=== PATIENT | female | born 1950 | race Caucasian/White ===

== ENCOUNTER 2016-10-13 15:48 | Emergency (ER) | payer MEDICARE, OTHER ==
[2016-10-13] MEDS ORDERED: ACETAMINOPHEN 325 MG TABLET PO STA (16:51)
[2016-10-13] MEDS ORDERED: ACETAMINOPHEN 325 MG TABLET PO ONE (17:04)
== END 2016-10-13 17:20 | disposition home or self-care (01) ==
DX: G43.909 Migraine, unspecified, not intractable, without status migrainosus (principal); R42 Dizziness and giddiness; I10 Essential (primary) hypertension; I73.9 Peripheral vascular disease, unspecified; Z86.711 Personal history of pulmonary embolism; Z79.01 Long term (current) use of anticoagulants
CPT/HCPCS: 99283; A9270

== ENCOUNTER 2017-02-09 13:51 | Outpatient (CLI) | payer MEDICARE, OTHER ==
[2017-02-09 19:14] LABS: BASOPHILS % (AUTO) 0.5 %; EOSINOPHILS # (AUTO) 0.2 10^3/uL (0.0-0.7); EOSINOPHILS % (AUTO) 3.5 %; HGB - HEMOGLOBIN 11.9 g/dL (12.0-16.0); LYMPHOCYTES # (AUTO) 1.1 10^3/uL (1.5-3.5); LYMPHOCYTES % (AUTO) 21.3 %; MEAN CORPUSCULAR HEMOGLOBIN 32.2 pg (27.0-31.0); MEAN CORPUSCULAR HGB CONC 33.2 g/dL (32.0-36.0); MEAN CORPUSCULAR VOLUME 96.9 fL (81.0-99.0); MEAN PLATELET VOLUME 7.7 fL (7.9-10.8); MONOCYTES # (AUTO) 0.5 10^3/uL (0.0-1.0); MONOCYTES % (AUTO) 9.8 %; NEUTROPHILS # (AUTO) 3.3 10^3/uL (1.5-6.6); NEUTROPHILS % (AUTO) 64.9 %; NUCLEATED RED BLOOD CELLS AUTO 0.1 /100WBC; RED BLOOD COUNT 3.71 10^6/uL (4.20-5.40); UNCORRECTED WHITE BLOOD COUNT 5.1 x10^3/uL; WHITE BLOOD COUNT 5.1 x10^3/uL (4.8-10.8)
[2017-02-09 19:31] LABS: ALBUMIN/GLOBULIN RATIO 1.4 (1.0-2.2); BILIRUBIN,TOTAL 0.4 mg/dL (0.2-1.0); CALCIUM 9.5 mg/dL (8.5-10.3); POTASSIUM 4.1 mmol/L (3.5-5.0); TOTAL PROTEIN 6.8 g/dL (6.7-8.2)
== END 2017-02-09 13:52 | disposition home or self-care (01) ==
LOC: LAB.WCP 13:51
PROVIDERS: ATTEND Family Medicine
DX: I95.9 Hypotension, unspecified (principal)
CPT/HCPCS: 36415; 80053; 85025

== ENCOUNTER 2017-04-25 11:08 | Outpatient (CLI) | payer MEDICARE, OTHER ==
--- NOTE | 2017-04-25 12:45 | XRAY Report ---
RIGHT HIP AND PELVIS: 04/25/2017 CLINICAL INDICATION: Pain. FINDINGS: Frontal view of the hips and pelvis and frogleg lateral view of the right hip demonstrate mild osteoarthritis. There is no evidence of acute fracture or dislocation. IMPRESSION: MILD RIGHT HIP OSTEOARTHRITIS. JOB #: [id number] EXT JOB #:[id number]
--- NOTE | 2017-04-25 12:45 | XRAY Report ---
TWO-VIEW STANDING RIGHT KNEE: 04/25/2017 CLINICAL INDICATION: Arthritis. COMPARISON: 11/17/2014 FINDINGS: Standing frontal and lateral views of the right knee demonstrate progression of osteoarthr itis, now severe. There is no evidence of fracture. No effusion is present. IMPRESSION: SEVERE RIGHT KNEE OSTEOARTHRITIS. JOB #: [id number] EXT JOB #:[id number]
== END 2017-04-25 11:09 | disposition home or self-care (01) ==
LOC: DI 11:08
PROVIDERS: ATTEND Family Medicine
DX: M16.11 Unilateral primary osteoarthritis, right hip (principal); M17.11 Unilateral primary osteoarthritis, right knee

== ENCOUNTER 2017-10-17 19:38 | Emergency (ER) | payer MEDICARE, OTHER ==
--- NOTE | 2017-10-17 19:57 | ED Physician Documentation ---
PD HPI HEAD INJURY - Stated complaint Stated Complaint: GLF - HEAD PX - Chief complaint Chief Complaint: Neuro - History obtained from History obtained from: Patient - History of Present Illness Mechanism of head injury: Other (67-year-old woman with remote history of PE and maintained on warfarin, last INR 2.2 couple of weeks ago and she has been pretty stable. She tripped over someone's foot today and injured her ankle but hit the back of her head on a piece of furniture and has a mild headache without loss of consciousness or nausea.) Review of Systems Constitutional: denies: Fever, Chills Eyes: denies: Loss of vision, Decreased vision Ears: denies: Loss of hearing, Ear pain Nose: denies: Rhinorrhea / runny nose, Congestion Cardiac: denies: Chest pain / pressure, Palpitations PD PAST MEDICAL HISTORY - Past Medical History Cardiovascular: Hypertension, Peripheral Vascular Disease, Pulmonary embolism Respiratory: None Neuro: Headache/migraine, Seizure disorder, Other Endocrine/Autoimmune: None GI: None : Frequency HEENT: None Psych: Claustrophobia, Other Musculoskeletal: Chronic back pain Derm: Rosacea - Past Surgical History Past Surgical History: Yes Ortho: Other - Present Medications Home Medications: Ambulatory Orders Medication Instructions Recorded Confirmed Biotin 1,000 mcg PO DAILY 08/25/14 10/13/16 Doxycycline Hyclate 50 mg PO BID 08/25/14 10/13/16 Simvastatin 20 mg PO DAILY 08/25/14 10/13/16 lamoTRIgine [Lamictal Xr] 200 mg PO BID 08/25/14 10/13/16 Warfarin [Coumadin] 5 mg PO DAILY 01/11/15 10/13/16 Oxybutynin [Ditropan] 5 mg PO BID 08/18/15 10/13/16 Metronidazole 0 mg TOP DAILY 01/25/16 10/13/16 Topiramate [Topamax] 100 mg PO BID 10/13/16 10/13/16 Doxycycline Monohydrate 50 mg PO BID 10/17/17 10/17/17 Furosemide [Lasix] 20 mg PO DAILY 10/17/17 10/17/17 Potassium Chloride 10 meq PO DAILY 10/17/17 10/17/17 diazePAM [Valium] 5 mg PO DAILY 10/17/17 10/17/17 - Allergies Allergies/Adverse Reactions: Allergies Allergy/AdvReac Type Severity Reaction Status Date / Time No Known Drug Allergies Allergy Verified 10/17/17 19:46 - Social History Does the pt smoke?: No Smoking Status: Never smoker Does the pt drink ETOH?: No Does the pt have substance abuse?: No - Immunizations Immunizations are current?: Yes PD ED PE NORMAL - Vitals Vital signs reviewed: Yes - General General: Alert and oriented X 3, No acute distress - HEENT HEENT: PERRL, EOMI, Other (Tenderness of the posterior scalp without deformity) - Neck Neck: Supple, no meningeal sign, No bony TTP - Extremities Extremities: Other (Tender to the lateral malleolus but more so the ATFL of the right ankle without deformity. Relatively normal gait with only mild limp.) - 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, Normal speech Eye Opening: Spontaneous Motor: Obeys Commands Verbal: Oriented GCS Score: 15 - Psych Psych: Normal mood, Normal affect Results - Vitals Vitals: Vital Signs - 24 hr 10/17/17 10/17/17 19:42 20:01 Temperature 36.9 C Heart Rate 74 64 Respiratory 16 18 Rate Blood Pressure 157/84 H 138/76 H O2 Saturation 100 99 Oxygen O2 Source [With Activity] Room air O2 Source [Without Activity] Room air O2 Source Room air - Labs Labs: Laboratory Tests 10/17/17 20:01 Whole Blood INR 2.8 H - Rads (name of study) XR R ankle Radiology: EMP read contemporaneously (STS and effusion, no frx) CT head Radiology: EMP read contemporaneously (atrophy, NAD) Departure - Departure Disposition: 01 Home, Self Care Clinical Impression: Anticoagulation adequate Head injury Qualifiers: Encounter type: initial encounter Qualified Code(s): S09.90XA - Unspecified injury of head, initial encounter Condition: Good Record reviewed to determine appropriate education?: Yes Instructions: ED Head Injury Closed Comments: Return for new or worsening symptoms, especially increased headaches. Your blood pressure was elevated today on check into the emergency department. This does not mean that you have hypertension, it is a common phenomenon to come to the emergency department and have elevated blood pressure. I recommend that you see your primary care physician within the week to have it rechecked when you are feeling better.
--- NOTE | 2017-10-17 20:30 | CT Report ---
EXAM: CT HEAD EXAM DATE: 10/17/2017 08:21 PM. CLINICAL HISTORY: Head injury, on warfarin. COMPARISON: 08/17/2015. TECHNIQUE: Multiaxial CT images were obtained from the foramen magnum to the vertex. Reformats: Coron al. IV contrast: None. In accordance with CT protocol optimization, one or more of the following dose reduction techniques w ere utilized for this exam: automated exposure control, adjustment of mA and/or KV based on patient s ize, or use of iterative reconstructive technique. FINDINGS: Parenchyma: No intraparenchymal hemorrhage. No evidence of mass, midline shift, or CT findings of acu te infarction. Laughlin-white differentiation is distinct. Diffuse chronic microangiopathic white matter changes. Extraaxial Spaces: Normal for age. No subdural or epidural collections. Ventricles: The ventricles and cortical sulci are enlarged, consistent with age-related tissue loss. Sinuses and orbits: Imaged paranasal sinuses, orbits, and mastoids show no significant abnormality. Bones: Unremarkable. Other: None. IMPRESSION: Generalized age-related cortical atrophic changes without evidence of acute intracranial abnormality. [facility] Referring Provider Line: [phone] SITE ID: [id number]
--- NOTE | 2017-10-17 20:36 | XRAY Report ---
EXAM: RIGHT ANKLE RADIOGRAPHY EXAM DATE: 10/17/2017 08:24 PM. CLINICAL HISTORY: Trauma, pain. COMPARISON: None. TECHNIQUE: 3 views. FINDINGS: Bones: Osteopenia. Large plantar calcaneal spur. No definite fracture or other bone lesion. Joints: Symmetrical mortise. Large joint effusion. Soft Tissues: Soft tissue swelling over malleoli. IMPRESSION: Soft tissue swelling with large effusion. [facility] Referring Provider Line: [phone] SITE ID: [id number]
[2017-10-17 20:50] VITALS: BP 142/81
== END 2017-10-17 20:59 | disposition home or self-care (01) ==
LOC: ED 19:38
DX: S09.90XA Unspecified injury of head, initial encounter (principal); M25.471 Effusion, right ankle; I73.9 Peripheral vascular disease, unspecified; I10 Essential (primary) hypertension; Z79.01 Long term (current) use of anticoagulants; Z86.711 Personal history of pulmonary embolism; W01.190A Fall on same level from slipping, tripping and stumbling with subsequent striking against furniture, initial encounter
CPT/HCPCS: 70450; 85610; 99283

== ENCOUNTER 2018-02-06 14:37 | Outpatient (CLI) | payer MEDICARE, OTHER | END 2018-02-06 14:38 | LOC: LAB.WCP 14:37 | PROVIDERS: ATTEND Family Medicine | DX: R19.09 Other intra-abdominal and pelvic swelling, mass and lump (principal) | CPT/HCPCS: 36415; 86304 ==

== ENCOUNTER 2018-05-06 11:53 | Outpatient (CLI) | payer MEDICARE, OTHER ==
[2018-05-06 19:40] LABS: THYROID STIMULATING HORMONE 1.68 uIU/mL (0.34-5.60)
[2018-05-06 19:45] LABS: FERRITIN 83.4 ng/mL (11.0-306.8)
[2018-05-08 13:46] LABS: ANA SCREEN NEGATIVE (NEGATIVE)
== END 2018-05-06 11:54 | disposition home or self-care (01) ==
LOC: LAB.WCP 11:53
PROVIDERS: ATTEND Family Medicine
DX: I10 Essential (primary) hypertension (principal); L65.9 Nonscarring hair loss, unspecified; E78.5 Hyperlipidemia, unspecified; Z79.899 Other long term (current) drug therapy
CPT/HCPCS: 36415; 80053; 80061; 80175; 81599; 82627; 82728; 83036; 83721; 84402; 84403; 84443; 85025; 86038; 86592

== ENCOUNTER 2018-05-07 10:50 | Outpatient (CLI) | payer MEDICARE, OTHER ==
[2018-05-07 12:59] LABS: BASOPHILS % (AUTO) 0.8 %; EOSINOPHILS # (AUTO) 0.1 10^3/uL (0.0-0.7); EOSINOPHILS % (AUTO) 3.7 %; HGB - HEMOGLOBIN 13.3 g/dL (12.0-16.0); LYMPHOCYTES # (AUTO) 0.9 10^3/uL (1.5-3.5); LYMPHOCYTES % (AUTO) 28.8 %; MEAN CORPUSCULAR HEMOGLOBIN 32.8 pg (27.0-31.0); MEAN CORPUSCULAR HGB CONC 34.5 g/dL (32.0-36.0); MEAN PLATELET VOLUME 7.5 fL (7.9-10.8); MONOCYTES # (AUTO) 0.3 10^3/uL (0.0-1.0); MONOCYTES % (AUTO) 9.6 %; NEUTROPHILS # (AUTO) 1.9 10^3/uL (1.5-6.6); NEUTROPHILS % (AUTO) 57.1 %; PLT - PLATELET COUNT 303 10^3/uL (130-450); RED BLOOD COUNT 4.05 10^6/uL (4.20-5.40); RED CELL DISTRIBUTION WIDTH 13.6 % (12.0-15.0); WHITE BLOOD COUNT 3.2 x10^3/uL (4.8-10.8)
[2018-05-07 13:01] LABS: ALBUMIN 3.9 g/dL (3.2-5.5); ALBUMIN/GLOBULIN RATIO 1.3 (1.0-2.2); ALKALINE PHOSPHATASE 77 IU/L (42-121); ALT ALANINE AMINOTRANSFERASE 16 IU/L (10-60); AST ASPARTATE AMINOTRANSFERASE 22 IU/L (10-42); BILIRUBIN,TOTAL 0.8 mg/dL (0.2-1.0); BUN - BLOOD UREA NITROGEN 25 mg/dL (6-20); CALCIUM 9.6 mg/dL (8.5-10.3); CARBON DIOXIDE - CO2 22 mmol/L (21-32); CHLORIDE 101 mmol/L (101-111); CHOL/HDL RATIO 2.7 (<4.4); CHOLESTEROL 214 mg/dL; CREATININE 0.9 mg/dL (0.4-1.0); GFR - MDRD 62 (>89); GLUCOSE 88 mg/dL (70-100); HDL CHOLESTEROL 78 mg/dL; LDL CHOLESTEROL,CALCULATED 124 mg/dL; LDL/HDL RATIO 1.6 (<4.4); SODIUM 132 mmol/L (135-145); TOTAL PROTEIN 6.8 g/dL (6.7-8.2); VLDL CHOLESTEROL 12 mg/dL
[2018-05-07 13:31] LABS: HB2 TOTAL 13.3 g/dL; HEMOGLOBIN A1C 0.43 g/dL; HEMOGLOBIN A1C % 5.1 % (4.6-6.2)
== END 2018-05-07 10:51 | disposition home or self-care (01) ==
LOC: LAB.WCP 10:50
PROVIDERS: ATTEND Family Medicine
DX: I10 Essential (primary) hypertension (principal); R73.01 Impaired fasting glucose; E78.5 Hyperlipidemia, unspecified; L65.9 Nonscarring hair loss, unspecified; Z79.899 Other long term (current) drug therapy
CPT/HCPCS: 36415; 80053; 80061; 83036; 83721; 85025

== ENCOUNTER 2018-09-12 08:00 | Outpatient (CLI) | payer MEDICARE, OTHER | END 2018-09-12 23:59 | disposition home or self-care (01) | LOC: LAB.WCP 08:00 | PROVIDERS: ATTEND Family Medicine | DX: Z86.718 Personal history of other venous thrombosis and embolism (principal); Z79.01 Long term (current) use of anticoagulants ==

== ENCOUNTER 2018-10-10 08:00 | Outpatient (CLI) | payer MEDICARE, OTHER | END 2018-10-10 23:59 | disposition home or self-care (01) | LOC: LAB.WCP 08:00 | PROVIDERS: ATTEND Physician Assistant Medical | DX: Z86.718 Personal history of other venous thrombosis and embolism (principal); Z79.01 Long term (current) use of anticoagulants | CPT/HCPCS: 81025 ==

== ENCOUNTER 2019-03-06 08:00 | Outpatient (CLI) | payer MEDICARE, OTHER | END 2019-03-06 23:59 | disposition home or self-care (01) | LOC: LAB.WCP 08:00 | PROVIDERS: ATTEND Family Medicine | DX: I82.90 Acute embolism and thrombosis of unspecified vein (principal); Z79.01 Long term (current) use of anticoagulants ==

== ENCOUNTER 2019-05-12 08:00 | Outpatient (CLI) | payer MEDICARE, OTHER | END 2019-05-12 23:59 | disposition home or self-care (01) | LOC: LAB.WCP 08:00 | PROVIDERS: ATTEND Physician Assistant Medical | DX: Z79.01 Long term (current) use of anticoagulants (principal); I82.409 Acute embolism and thrombosis of unspecified deep veins of unspecified lower extremity ==

== ENCOUNTER 2019-05-16 14:38 | Outpatient (CLI) | payer MEDICARE, OTHER ==
[2019-05-16 19:19] LABS: BASOPHILS % (AUTO) 1.1 %; EOSINOPHILS # (AUTO) 0.2 10^3/uL (0.0-0.7); EOSINOPHILS % (AUTO) 5.4 %; HGB - HEMOGLOBIN 12.4 g/dL (12.0-16.0); LYMPHOCYTES # (AUTO) 0.7 10^3/uL (1.5-3.5); LYMPHOCYTES % (AUTO) 19.4 %; MEAN CORPUSCULAR HEMOGLOBIN 31.3 pg (27.0-31.0); MEAN CORPUSCULAR HGB CONC 31.2 g/dL (32.0-36.0); MEAN CORPUSCULAR VOLUME 100.5 fL (81.0-99.0); MONOCYTES # (AUTO) 0.4 10^3/uL (0.0-1.0); MONOCYTES % (AUTO) 11.3 %; NEUTROPHILS # (AUTO) 2.3 10^3/uL (1.5-6.6); NEUTROPHILS % (AUTO) 62.3 %; PLT - PLATELET COUNT 288 10^3/uL (130-450); RED BLOOD COUNT 3.96 10^6/uL (4.20-5.40); RED CELL DISTRIBUTION WIDTH 14.1 % (12.0-15.0); WHITE BLOOD COUNT 3.7 x10^3/uL (4.8-10.8)
[2019-05-16 19:44] LABS: ALBUMIN/GLOBULIN RATIO 1.3 (1.0-2.2); ALKALINE PHOSPHATASE 73 IU/L (42-121); ALT ALANINE AMINOTRANSFERASE 21 IU/L (10-60); AST ASPARTATE AMINOTRANSFERASE 22 IU/L (10-42); BILIRUBIN,TOTAL 0.6 mg/dL (0.2-1.0); BUN - BLOOD UREA NITROGEN 29 mg/dL (6-20); CALCIUM 9.6 mg/dL (8.5-10.3); CARBON DIOXIDE - CO2 25 mmol/L (21-32); CHLORIDE 106 mmol/L (101-111); CHOL/HDL RATIO 2.4 (<4.4); CHOLESTEROL 184 mg/dL; GFR - MDRD 55 (>89); GLUCOSE 93 mg/dL (70-100); HDL CHOLESTEROL 77 mg/dL; LDL CHOLESTEROL,CALCULATED 95 mg/dL; LDL/HDL RATIO 1.2 (<4.4); SODIUM 138 mmol/L (135-145); VLDL CHOLESTEROL 12 mg/dL
[2019-05-16 19:53] LABS: FERRITIN 41.9 ng/mL (11.0-306.8)
[2019-05-16 19:58] LABS: HB2 TOTAL 12.9 g/dL; HEMOGLOBIN A1C 0.48 g/dL; HEMOGLOBIN A1C % 5.6 % (4.6-6.2)
[2019-05-17 12:12] LABS: HEPATITIS C ANTIBODY NON-REACTIVE (NON-REACTIVE)
== END 2019-05-16 23:59 | disposition home or self-care (01) ==
LOC: LAB.WCP 14:38
PROVIDERS: ATTEND Family Medicine
DX: Z11.59 Encounter for screening for other viral diseases (principal); L65.9 Nonscarring hair loss, unspecified; R73.01 Impaired fasting glucose; E04.1 Nontoxic single thyroid nodule; I10 Essential (primary) hypertension; E78.5 Hyperlipidemia, unspecified; G40.909 Epilepsy, unspecified, not intractable, without status epilepticus
CPT/HCPCS: 36415; 80053; 80061; 80175; 82728; 83036; 83721; 84443; 85025; 86803

== ENCOUNTER 2019-06-12 08:00 | Outpatient (CLI) | payer MEDICARE, OTHER | END 2019-06-12 23:59 | disposition home or self-care (01) | LOC: LAB.WCP 08:00 | PROVIDERS: ATTEND Family Medicine | DX: Z79.01 Long term (current) use of anticoagulants (principal); I82.90 Acute embolism and thrombosis of unspecified vein ==

== ENCOUNTER 2019-06-20 23:39 | Emergency (ER) | payer MEDICARE, OTHER ==
--- NOTE | 2019-06-20 23:54 | ED Physician Documentation ---
PD HPI BACK PAIN - Stated complaint Stated Complaint: BK PX - Chief complaint Chief Complaint: Back Pain - History obtained from History obtained from: Patient - History of Present Illness Timing - onset: Yesterday Timing - details: Abrupt onset, Intermittant, Waxing and waning Pain level max: 8 Pain level now: 0 (no pain at rest but pain recurs with movement) Location: Lower, Left Quality: Pain, Spasm Associated symptoms: No: Fever, Weakness, Numbness Improves with: Rest Worsened by: Movement Similar symptoms before: Other (some similarity to when she was diagnosed with P E) Recently seen: Not recently seen - Additional information Additional information: woke yesterday morning with left flank pain that improved during the day but recurred this AM and more severe. It is distinctly worse with movement although no pleuritic component. took tylenol without relief. She feels that there is some similarity to when she was diagnosed with PE, although she was short of breath and had pleuritic pain that time (she has neither of these today). Review of Systems Constitutional: denies: Fever Cardiac: reports: Reviewed and negative Respiratory: reports: Reviewed and negative GI: reports: Reviewed and negative : denies: Dysuria, Frequency, Hematuria Musculoskeletal: reports: Back pain. denies: Extremity swelling PD PAST MEDICAL HISTORY - Past Medical History Cardiovascular: Hypertension, Peripheral Vascular Disease, Pulmonary embolism Respiratory: None Endocrine/Autoimmune: None GI: None : Frequency HEENT: None Psych: Claustrophobia, Other Musculoskeletal: Chronic back pain Derm: Rosacea - Past Surgical History Past Surgical History: Yes Ortho: Other - Present Medications Home Medications: Ambulatory Orders Medication Instructions Recorded Confirmed Biotin 1,000 mcg PO DAILY 08/25/14 10/13/16 Doxycycline Hyclate 50 mg PO BID 08/25/14 10/13/16 Simvastatin 20 mg PO DAILY 08/25/14 10/13/16 lamoTRIgine [Lamictal Xr] 200 mg PO BID 08/25/14 10/13/16 Warfarin [Coumadin] 5 mg PO DAILY 01/11/15 10/13/16 Oxybutynin [Ditropan] 5 mg PO BID 08/18/15 10/13/16 Metronidazole 0 mg TOP DAILY 01/25/16 10/13/16 Topiramate [Topamax] 100 mg PO BID 10/13/16 10/13/16 Doxycycline Monohydrate 50 mg PO BID 10/17/17 10/17/17 Furosemide [Lasix] 20 mg PO DAILY 10/17/17 10/17/17 Potassium Chloride 10 meq PO DAILY 10/17/17 10/17/17 diazePAM [Valium] 5 mg PO DAILY 10/17/17 10/17/17 Cyclobenzaprine [Flexeril] 10 mg PO TID PRN #20 tablet 06/21/19 Oxycodone HCl/Acetaminophen 1 - 2 each PO Q6H PRN #14 tablet 06/21/19 [Percocet 5-325 mg Tablet] - Allergies Allergies/Adverse Reactions: Allergies Allergy/AdvReac Type Severity Reaction Status Date / Time No Known Drug Allergies Allergy Verified 06/20/19 23:46 - Social History Does the pt smoke?: No Smoking Status: Never smoker Does the pt drink ETOH?: No Does the pt have substance abuse?: No - Immunizations Immunizations are current?: Yes - POLST Patient has POLST: No PD ED PE NORMAL - Vitals Vital signs reviewed: Yes - General General: Alert and oriented X 3, No acute distress (NAD at rest but painful distress with movement involving ), Well developed/nourished - Cardiac Cardiac: RRR, No murmur - Respiratory Respiratory: No respiratory distress, Clear bilaterally - Abdomen Abdomen: Soft, Non tender - Back Back: No CVA TTP, No spinal TTP - Derm Derm: No rash - Extremities Extremities: No edema - Neuro Neuro: No motor deficit, No sensory deficit Results - Vitals Vitals: Vital Signs - 24 hr 06/20/19 06/21/19 06/21/19 23:44 02:14 02:35 Temperature 36.8 C Heart Rate 79 82 72 Respiratory 18 18 16 Rate Blood Pressure 176/88 H 137/73 H O2 Saturation 100 98 97 06/21/19 03:15 Temperature 36.7 C Heart Rate 72 Respiratory 18 Rate Blood Pressure 138/75 H O2 Saturation 99 Oxygen O2 Source [With Activity] Room air O2 Source [Without Activity] Room air O2 Source Room air - Labs Labs: Laboratory Tests 06/21/19 06/21/19 01:05 01:05 WBC 4.6 L RBC 3.72 L Hgb 11.9 L Hct 36.7 L MCV 98.7 MCH 32.0 H MCHC 32.4 RDW 13.2 Plt Count 245 MPV 9.0 Neut # (Auto) 3.2 Lymph # (Auto) 0.7 L [place] # (Auto) 0.6 Eos # (Auto) 0.1 Baso # (Auto) 0.0 Absolute Nucleated RBC 0.00 Nucleated RBC % 0.0 Sodium 141 Potassium 4.0 Chloride 112 H Carbon Dioxide 22 Anion Gap 7.0 BUN 26 H Creatinine 0.8 Estimated GFR (MDRD) 71 L Glucose 113 H Calcium 9.2 - Rads (name of study) CT chest angio (PE study) Radiology: Prelim report reviewed, See rad report PD MEDICAL DECISION MAKING - ED course Complexity details: reviewed results, re-evaluated patient, considered differential, d/w patient Departure - Departure Disposition: 01 Home, Self Care Clinical Impression: Back pain Condition: Good Instructions: NARCOTIC, Oral, ED Neck Back Pain General Follow-Up: Karlos Moyer DO [Primary Care Provider] - Prescriptions: Cyclobenzaprine [Flexeril] 10 mg PO TID PRN #20 tablet PRN Reason: Spasms Oxycodone HCl/Acetaminophen [Percocet 5-325 mg Tablet] 1 - 2 each PO Q6H PRN #14 tablet PRN Reason: pain Discharge Date/Time: 06/21/19 03:22
[2019-06-21] MEDS ORDERED: MORPHINE 2 MG/ML CARPUJECT IVP STA ×2 (00:50→02:18)
[2019-06-21] MEDS ORDERED: CYCLOBENZAPRINE 10 MG TABLET PO STA (00:50)
[2019-06-21 01:12] LABS: BASOPHILS % (AUTO) 0.7 %; EOSINOPHILS # (AUTO) 0.1 10^3/uL (0.0-0.7); EOSINOPHILS % (AUTO) 2.8 %; HGB - HEMOGLOBIN 11.9 g/dL (12.0-16.0); LYMPHOCYTES # (AUTO) 0.7 10^3/uL (1.5-3.5); LYMPHOCYTES % (AUTO) 14.2 %; MEAN CORPUSCULAR HGB CONC 32.4 g/dL (32.0-36.0); MEAN CORPUSCULAR VOLUME 98.7 fL (81.0-99.0); MONOCYTES # (AUTO) 0.6 10^3/uL (0.0-1.0); MONOCYTES % (AUTO) 13.3 %; NEUTROPHILS # (AUTO) 3.2 10^3/uL (1.5-6.6); NEUTROPHILS % (AUTO) 68.8 %; PLT - PLATELET COUNT 245 10^3/uL (130-450); RED BLOOD COUNT 3.72 10^6/uL (4.20-5.40); RED CELL DISTRIBUTION WIDTH 13.2 % (12.0-15.0); WHITE BLOOD COUNT 4.6 x10^3/uL (4.8-10.8)
[2019-06-21] MEDS ORDERED: IOVERSOL 320 100 ML VIAL IVP ONE ×2 (01:13→02:07)
[2019-06-21 01:20] LABS: CALCIUM 9.2 mg/dL (8.5-10.3); CREATININE 0.8 mg/dL (0.4-1.0)
--- NOTE | 2019-06-21 02:23 | CT Report ---
Reason: left flank/chest pain Procedure Date: 06/21/2019 Accession Number: [id number] / [id number] Procedure: CT - ANGIO CHEST W/WO CPT Code: Final Report FULL RESULT: EXAM: CT ANGIOGRAM CHEST EXAM DATE: 06/21/2019 02:04 AM. CLINICAL HISTORY: Left flank/chest pain. COMPARISON: None. TECHNIQUE: Routine helical imaging was performed through the chest in the pulmonary arterial phase. IV Contrast: OPTI 320 80ML. Reconstructions: Coronal 3-D MIP reconstructions.Sagittal and coronal. In accordance with CT protocol optimization, one or more of the following dose reduction techniques were utilized for this exam: automated exposure control, adjustment of mA and/or KV based on patient size, or use of iterative reconstructive technique. FINDINGS: Pulmonary Arteries: Diagnostic quality: Adequate through the segmental arteries. No evidence for acute or chronic pulmonary emboli. RV/LV is within normal limits. There is no interventricular septal bowing. There is no reflux of contrast material in the IVC. Lungs/Pleura: The lung volume to low which in part accentuates the interstitium. There may be very hazy infiltrative changes in various portions of both lungs. There is no pneumonic airspace infiltration. There are no pleural effusions. There is a cluster of tiny calcifications in the right lower lobe within the parenchyma and contiguous with the pleura. Mediastinum: The heart is enlarged. There are atherosclerotic vascular calcifications. There is no lymphadenopathy in the mediastinum nor hilar regions. Thoracic Aorta: Unremarkable. Upper Abdomen: There is cholelithiasis. There is also vicarious excretion of contrast within the gallbladder. Other: None. IMPRESSION: 1. No evidence for pulmonary emboli. 2. Enlarged heart. No signs for congestive failure. No pleural effusions. 3. Minimal patchy groundglass infiltrative changes in both lungs. Nonspecific. 4. Cholelithiasis. [facility]
[2019-06-21 03:23] VITALS: BP 138/75
== END 2019-06-21 03:22 | disposition home or self-care (01) ==
LOC: ED 23:39
DX: M54.9 Dorsalgia, unspecified (principal); I10 Essential (primary) hypertension
CPT/HCPCS: 36415; 71275; 80048; 85025; 96374; 96376; 99284; A9270; Q9967

== ENCOUNTER 2019-07-10 08:00 | Outpatient (CLI) | payer MEDICARE, OTHER | END 2019-07-10 23:59 | disposition home or self-care (01) | LOC: LAB.WCP 08:00 | PROVIDERS: ATTEND Family Medicine | DX: Z79.01 Long term (current) use of anticoagulants (principal); I82.409 Acute embolism and thrombosis of unspecified deep veins of unspecified lower extremity ==

== ENCOUNTER 2019-08-25 08:00 | Outpatient (CLI) | payer MEDICARE, OTHER | END 2019-08-25 23:59 | disposition home or self-care (01) | LOC: LAB.WCP 08:00 | PROVIDERS: ATTEND Family Medicine | DX: Z79.01 Long term (current) use of anticoagulants (principal); I82.409 Acute embolism and thrombosis of unspecified deep veins of unspecified lower extremity ==

== ENCOUNTER 2019-09-15 15:27 | Outpatient (CLI) | payer MEDICARE, OTHER | END 2019-09-15 15:28 | disposition home or self-care (01) | LOC: DI 15:27 | PROVIDERS: ATTEND Family Medicine | DX: Z53.9 Procedure and treatment not carried out, unspecified reason (principal) ==

== ENCOUNTER 2019-10-09 10:30 | Emergency (ER) | payer MEDICARE, OTHER ==
--- NOTE | 2019-10-09 10:37 | ED Physician Documentation ---
PD HPI HEAD INJURY - Stated complaint Stated Complaint: HEAD LAC - Chief complaint Chief Complaint: Laceration - History obtained from History obtained from: Patient - History of Present Illness Mechanism of head injury: Fell (shew states she tripped "over her own feet" while walking outside and fell back, striking back of head. With laceration on occiput. No LOC.) Where head injury occurred: Other (outside onto gravel) Timing - onset: Today (just [employer]) Location of injury: Back Quality of pain: Aching (only mild local pain at injury.) Associated symptoms: Neck pain (mild). No: LOC, AMS, Nausea / vomiting Symptoms worsen with: Movement Contributing factors: Anticoagulated (Coumadin). No: Intoxicated Similar symptoms before: Has not had sx before Review of Systems Constitutional: denies: Fever, Chills Nose: denies: Rhinorrhea / runny nose, Congestion Respiratory: denies: Dyspnea, Cough GI: denies: Abdominal Pain, Nausea, Vomiting Neurologic: reports: Head injury. 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 : Frequency HEENT: None Psych: Claustrophobia, Other Musculoskeletal: Chronic back pain Derm: Rosacea - Past Surgical History Past Surgical History: Yes Ortho: Other - Present Medications Home Medications: Ambulatory Orders Medication Instructions Recorded Confirmed Biotin 1,000 mcg PO DAILY 08/25/14 10/13/16 Doxycycline Hyclate 50 mg PO BID 08/25/14 10/13/16 Simvastatin 20 mg PO DAILY 08/25/14 10/13/16 lamoTRIgine [Lamictal Xr] 200 mg PO BID 08/25/14 10/13/16 Warfarin [Coumadin] 5 mg PO DAILY 01/11/15 10/13/16 Oxybutynin [Ditropan] 5 mg PO BID 08/18/15 10/13/16 Metronidazole 0 mg TOP DAILY 01/25/16 10/13/16 Topiramate [Topamax] 100 mg PO BID 10/13/16 10/13/16 Doxycycline Monohydrate 50 mg PO BID 10/17/17 10/17/17 Furosemide [Lasix] 20 mg PO DAILY 10/17/17 10/17/17 Potassium Chloride 10 meq PO DAILY 10/17/17 10/17/17 diazePAM [Valium] 5 mg PO DAILY 10/17/17 10/17/17 Cyclobenzaprine [Flexeril] 10 mg PO TID PRN #20 tablet 06/21/19 Oxycodone HCl/Acetaminophen 1 - 2 each PO Q6H PRN #14 tablet 06/21/19 [Percocet 5-325 mg Tablet] - Allergies Allergies/Adverse Reactions: Allergies Allergy/AdvReac Type Severity Reaction Status Date / Time pseudoephedrine Allergy Unknown Verified 06/24/19 07:36 [From Sudafed] motion sickness pills Allergy Unknown Uncoded 06/24/19 07:36 - Social History Does the pt smoke?: No Smoking Status: Never smoker Does the pt drink ETOH?: No Does the pt have substance abuse?: No - Immunizations Immunizations are current?: Yes - POLST Patient has POLST: No PD ED PE NORMAL - Vitals Vital signs reviewed: Yes - General General: Alert and oriented X 3, No acute distress, Well developed/nourished - HEENT HEENT: PERRL, EOMI, Other (occipital scalp with 3 cm laceration through to fatty tissue but not deeper. No FB. Mild oozing bleeding. Wound is clean. ) - Neck Neck: Supple, no meningeal sign, No adenopathy, Other (some tenderness in lower neck muscles, with mild tender midline. ) - Respiratory Respiratory: Clear bilaterally, Other (no chestwall tenderness. 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 detail representative 2-12 intact, No motor deficit, No sensory deficit, Normal speech, Other Results - Vitals Vitals: Vital Signs - 24 hr 10/09/19 10/09/19 10:33 12:07 Temperature 36.4 C L 36.9 C Heart Rate 79 76 Respiratory 16 16 Rate Blood Pressure 169/87 H 130/87 H O2 Saturation 100 99 Oxygen O2 Source [With Activity] Room air O2 Source [Without Activity] Room air O2 Source Room air - Labs Labs: Laboratory Tests 10/09/19 11:02 Whole Blood INR 2.8 H - Rads (name of study) head CT Radiology: Prelim report reviewed (no ICH), See rad report cervical spine CT Radiology: Prelim report reviewed (no acute fractures), See rad report Procedures - Laceration (location) occipital scalp Length in cm: 3 Wound type: Linear, Into subcut fat, Clean. No: Into muscle, Contaminated Anesthesia: LET, Lidocaine 1% with epi Wound Preparation: Wound explored, To the base. No: FB identified Skin layer closure: Nylon, Running, Size #-0 - enter number (4), Sutures - enter # (6) Other: Patient tolerated well, No complications, Neurovascular intact, Tetanus UTD Complexity: Simple PD MEDICAL DECISION MAKING - ED course Complexity details: considered differential, d/w patient Departure - Departure Disposition: 01 Home, Self Care Clinical Impression: Anticoagulant long-term use Fall from slip, trip, or stumble Qualifiers: Encounter type: initial encounter Qualified Code(s): W01.0XXA - Fall on same level from slipping, tripping and stumbling without subsequent striking against object, initial encounter Scalp laceration Qualifiers: Encounter type: initial encounter Qualified Code(s): S01.01XA - Laceration without foreign body of scalp, initial encounter Condition: Stable Record reviewed to determine appropriate education?: Yes Instructions: ED Laceration Scalp Stitch Or Stap Follow-Up: Karlos Moyer DO [Primary Care Provider] - Comments: It is okay to wash and shower. Clean off the wound twice a day with soap and water, or peroxide and water. Apply some antibiotic ointment to it to keep it moist. Also to watch for signs of infection such as purulence, redness or increasing pain. Return to your primary care or the ER at the specified time for suture removal. Suture removal 8 to 10 days. Discharge Date/Time: 10/09/19 12:18
[2019-10-09] MEDS ORDERED: LIDOCAINE-EPINEPH-TETRACAINE 3 ML SYRINGE TOP STA (10:51)
[2019-10-09] MEDS ORDERED: LIDOCAINE 1%-EPI 1:100000 20 ML MDV SUBQ STA (10:54)
--- NOTE | 2019-10-09 11:35 | CT Report ---
Reason: head injury; on Coumadin Procedure Date: 10/09/2019 Accession Number: [id number] / [id number] Procedure: CT - HEAD WO CPT Code: Final Report FULL RESULT: EXAM: CT HEAD EXAM DATE: 10/09/2019 11:24 AM. CLINICAL HISTORY: Acute pain due to trauma. COMPARISON: HEAD W/O 10/17/2017 8:13 PM. TECHNIQUE: Multiaxial CT images were obtained from the foramen magnum to the vertex. Reformats: Sagittal and coronal. IV contrast: None. In accordance with CT protocol optimization, one or more of the following dose reduction techniques were utilized for this exam: automated exposure control, adjustment of mA and/or KV based on patient size, or use of iterative reconstructive technique. FINDINGS: Parenchyma: No intraparenchymal hemorrhage. No evidence of mass, midline shift, or CT findings of infarction. Laughlin-white differentiation is distinct. Extraaxial Spaces: Normal for age. No subdural or epidural collections identified. Ventricles: Normal in size and position. Sinuses and Orbits: Imaged paranasal sinuses, orbits, and mastoids show no significant abnormality. Bones: No evidence of fracture or calvarial defect. Other: None. IMPRESSION: Normal head CT. [facility]
--- NOTE | 2019-10-09 11:52 | CT Report ---
Reason: fall with head injury/neck pain Procedure Date: 10/09/2019 Accession Number: [id number] / [id number] Procedure: CT - CERVICAL SPINE WO CPT Code: Final Report FULL RESULT: EXAM: CT CERVICAL SPINE WITHOUT CONTRAST DATE: 10/09/2019 11:24 AM. HISTORY: Acute pain due to trauma. COMPARISONS: HEAD W/O 10/17/2017 8:13 PM HEAD OR NECK SOFT TISSUE 05/25/2016 8:41 AM. TECHNIQUE: Thin-section axial images were acquired of the cervical spine without contrast. Post-processing: Coronal and sagittal reformats. Other: None. In accordance with CT protocol optimization, one or more of the following dose reduction techniques were utilized for this exam: automated exposure control, adjustment of mA and/or KV based on patient size, or use of iterative reconstructive technique. FINDINGS: Alignment: No scoliosis or spondylolisthesis. 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 No fracture or bone lesion is identified. Interspace Levels/Facets: There is mild diffuse degenerative disk and facet disease seen throughout the mid and lower aspects of the cervical spine. The bony central canal is relatively pain. Musculature: Normal. No fatty atrophy. Other: The paravertebral and prevertebral soft tissues are unremarkable. Heterogeneous mildly enlarged thyroid gland is seen, nonspecific. The lung apices are clear. IMPRESSION: 1. No acute osseous abnormality demonstrated. 2. Mild diffuse degenerative spondylosis changes of the mid and lower cervical spine. 3. Mildly heterogeneous enlarged thyroid gland. Correlation with thyroid ultrasound could be helpful in further evaluation. [facility]
[2019-10-09 12:08] VITALS: BP 130/87
== END 2019-10-09 12:18 | disposition home or self-care (01) ==
LOC: ED 10:30
DX: S01.01XA Laceration without foreign body of scalp, initial encounter (principal); W01.0XXA Fall on same level from slipping, tripping and stumbling without subsequent striking against object, initial encounter; Y93.01 Activity, walking, marching and hiking; Y92.89 Other specified places as the place of occurrence of the external cause; I10 Essential (primary) hypertension; Z79.01 Long term (current) use of anticoagulants
CPT/HCPCS: 12013; 70450; 72125; 85610; 99284

== ENCOUNTER 2019-10-13 15:24 | Emergency (ER) | payer MEDICARE, OTHER ==
--- NOTE | 2019-10-13 15:37 | ED Physician Documentation ---
History of Present Illness - Stated complaint Stated Complaint: GLF - HEAD INJ - History obtained from History obtained from: Patient - History of Present Illness Timing: How many hours ago (1) Pain level max: 2 Pain level now: 1 - Additonal information Additional information: fell, backwards and struck her head on the ground. No LOC. no vomiting. Patient is on warfarin. No neck or back pain. no numbness or tingling. 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 : 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 HEENT: None Psych: Claustrophobia, Other Musculoskeletal: Chronic back pain Derm: Rosacea - Past Surgical History Past Surgical History: Yes Ortho: Other - Present Medications Home Medications: Ambulatory Orders Medication Instructions Recorded Confirmed Biotin 1,000 mcg PO DAILY 08/25/14 10/13/16 Doxycycline Hyclate 50 mg PO BID 08/25/14 10/13/16 Simvastatin 20 mg PO DAILY 08/25/14 10/13/16 lamoTRIgine [Lamictal Xr] 200 mg PO BID 08/25/14 10/13/16 Warfarin [Coumadin] 5 mg PO DAILY 01/11/15 10/13/16 Oxybutynin [Ditropan] 5 mg PO BID 08/18/15 10/13/16 Metronidazole 0 mg TOP DAILY 01/25/16 10/13/16 Topiramate [Topamax] 100 mg PO BID 10/13/16 10/13/16 Doxycycline Monohydrate 50 mg PO BID 10/17/17 10/17/17 Furosemide [Lasix] 20 mg PO DAILY 10/17/17 10/17/17 Potassium Chloride 10 meq PO DAILY 10/17/17 10/17/17 diazePAM [Valium] 5 mg PO DAILY 10/17/17 10/17/17 Cyclobenzaprine [Flexeril] 10 mg PO TID PRN #20 tablet 06/21/19 Oxycodone HCl/Acetaminophen 1 - 2 each PO Q6H PRN #14 tablet 06/21/19 [Percocet 5-325 mg Tablet] - Allergies Allergies/Adverse Reactions: Allergies Allergy/AdvReac Type Severity Reaction Status Date / Time pseudoephedrine Allergy Unknown Verified 06/24/19 07:36 [From Sudafed] motion sickness pills Allergy Unknown Uncoded 06/24/19 07:36 - Social History Does the pt smoke?: No Smoking Status: Never smoker Does the pt drink ETOH?: No Does the pt have substance abuse?: No - Immunizations Immunizations are current?: Yes - POLST Patient has POLST: No PD ED PE NORMAL - Vitals Vital signs reviewed: Yes - General General: Alert and oriented X 3, No acute distress, Well developed/nourished - HEENT HEENT: Atraumatic, PERRL, EOMI, Ears normal, Moist mucous membranes, Pharynx benign - Neck Neck: Supple, no meningeal sign, No bony TTP, Other (No step-off or deformity. 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, No motor deficit, No sensory deficit, Normal speech Eye Opening: Spontaneous Motor: Obeys Commands Verbal: Oriented GCS Score: 15 - Psych Psych: Normal mood, Normal affect Results - Vitals Vitals: Vital Signs - 24 hr 10/13/19 10/13/19 10/13/19 15:38 15:56 16:48 Temperature 36.9 C 36.6 C 36.6 C Heart Rate 84 80 82 Respiratory 16 16 16 Rate Blood Pressure 152/96 H 142/86 H 132/89 H O2 Saturation 100 100 100 Oxygen O2 Source [With Activity] Room air O2 Source [Without Activity] Room air O2 Source Room air - Labs Labs: Laboratory Tests 10/13/19 15:47 Whole Blood INR 2.9 H - Rads (name of study) head ct Radiology: Prelim report reviewed, EMP read contemporaneously, See rad report (No acute abnormality) PD MEDICAL DECISION MAKING - ED course Complexity details: reviewed results, re-evaluated patient, considered differential, d/w patient ED course: Patient presents to the emergency department after a fall in which she struck he r head. INR is 2.9. Negative head CT. Asymptomatic. No scalp hematomas. No skull fractures. No evidence of cervical spine injury. Patient counseled regarding signs and symptoms for which I believe and urgent re-evaluation would be necessary. Patient with good understanding of and agreement to plan and is comfortable going home at this time This document was made in part using voice recognition software. While efforts are made to proofread this document, sound alike and grammatical errors may occur. Departure - Departure Disposition: 01 Home, Self Care Clinical Impression: Anticoagulation adequate Head injury Qualifiers: Encounter type: initial encounter Qualified Code(s): S09.90XA - Unspecified injury of head, initial encounter Condition: Good Instructions: ED Head Injury Closed Follow-Up: Karlos Moyer DO [Primary Care Provider] - As Needed Comments: Return if you worsen. Your CT scan is normal today. Follow-up with your doctor as needed for further care. Your INR was 2.9.
--- NOTE | 2019-10-13 16:28 | CT Report ---
Reason: head injury, pt on warfarin Procedure Date: 10/13/2019 Accession Number: [id number] / [id number] Procedure: CT - HEAD WO CPT Code: Final Report FULL RESULT: EXAM: CT HEAD EXAM DATE: 10/13/2019 03:42 PM. CLINICAL HISTORY: Head injury, patient on warfarin. COMPARISON: CERVICAL SPINE W/O 10/09/2019 11:16 AM HEAD W/O 10/09/2019 11:16 AM. TECHNIQUE: Multiaxial CT images were obtained from the foramen magnum to the vertex. Reformats: Sagittal and coronal. IV contrast: None. In accordance with CT protocol optimization, one or more of the following dose reduction techniques were utilized for this exam: automated exposure control, adjustment of mA and/or KV based on patient size, or use of iterative reconstructive technique. FINDINGS: Parenchyma: No intraparenchymal hemorrhage. No evidence of mass, midline shift, or CT findings of acute infarction. Laughlin-white differentiation is distinct. Extraaxial Spaces: Normal for age. No subdural or epidural collections identified. Ventricles: Normal in size and position. Sinuses and Orbits: Imaged paranasal sinuses, orbits, and mastoids show no significant abnormality. Bones: No evidence of fracture or calvarial defect. Other: None. IMPRESSION: Normal head CT. No bleeding, mass-effect or shift. RADIA
[2019-10-13 16:50] VITALS: BP 147/80
== END 2019-10-13 16:50 | disposition home or self-care (01) ==
LOC: ED 15:24
DX: S09.90XA Unspecified injury of head, initial encounter (principal); W18.30XA Fall on same level, unspecified, initial encounter; I10 Essential (primary) hypertension; Z79.01 Long term (current) use of anticoagulants
CPT/HCPCS: 70450; 85610; 99284

== ENCOUNTER 2020-04-09 08:00 | Outpatient (CLI) | payer MEDICARE, OTHER | END 2020-04-09 23:59 | disposition home or self-care (01) | LOC: LAB.WCP 08:00 | PROVIDERS: ATTEND Family Medicine | DX: Z79.01 Long term (current) use of anticoagulants (principal) ==

== ENCOUNTER 2020-04-23 08:00 | Outpatient (CLI) | payer MEDICARE, OTHER | END 2020-04-23 23:59 | disposition home or self-care (01) | LOC: LAB.WCP 08:00 | PROVIDERS: ATTEND Family Medicine | DX: Z79.01 Long term (current) use of anticoagulants (principal) ==

== ENCOUNTER 2020-05-14 08:00 | Outpatient (CLI) | payer MEDICARE, OTHER | END 2020-05-14 23:59 | disposition home or self-care (01) | LOC: LAB.WCP 08:00 | PROVIDERS: ATTEND Family Medicine | DX: Z79.01 Long term (current) use of anticoagulants (principal) ==

== ENCOUNTER 2020-05-19 08:00 | Outpatient (CLI) | payer MEDICARE, OTHER | END 2020-05-19 23:59 | disposition home or self-care (01) | LOC: LAB.WCP 08:00 | PROVIDERS: ATTEND Family Medicine | DX: Z79.01 Long term (current) use of anticoagulants (principal) ==

== ENCOUNTER 2020-06-01 08:00 | Outpatient (CLI) | payer MEDICARE, OTHER | END 2020-06-01 23:59 | disposition home or self-care (01) | LOC: LAB.WCP 08:00 | PROVIDERS: ATTEND Family Medicine | DX: Z79.01 Long term (current) use of anticoagulants (principal) ==

== ENCOUNTER 2020-06-18 08:00 | Outpatient (CLI) | payer MEDICARE, OTHER | END 2020-06-18 23:59 | disposition home or self-care (01) | LOC: LAB.WCP 08:00 | PROVIDERS: ATTEND Family Medicine | DX: Z79.01 Long term (current) use of anticoagulants (principal) ==

== ENCOUNTER 2020-08-25 08:00 | Outpatient (CLI) | payer MEDICARE, OTHER | END 2020-08-25 23:59 | disposition home or self-care (01) | LOC: LAB.WCP 08:00 | PROVIDERS: ATTEND Family Medicine | DX: I82.90 Acute embolism and thrombosis of unspecified vein (principal); Z79.01 Long term (current) use of anticoagulants ==

== ENCOUNTER 2020-08-30 08:00 | Outpatient (CLI) | payer MEDICARE, OTHER | END 2020-08-30 23:59 | disposition home or self-care (01) | LOC: LAB.N 08:00 | PROVIDERS: ATTEND Family Medicine | DX: Z86.718 Personal history of other venous thrombosis and embolism (principal); Z79.01 Long term (current) use of anticoagulants ==

== ENCOUNTER 2020-10-11 08:00 | Outpatient (CLI) | payer MEDICARE, OTHER | END 2020-10-11 23:59 | disposition home or self-care (01) | LOC: LAB.WCP 08:00 | PROVIDERS: ATTEND Family Medicine | DX: Z79.01 Long term (current) use of anticoagulants (principal); Z86.718 Personal history of other venous thrombosis and embolism; I82.409 Acute embolism and thrombosis of unspecified deep veins of unspecified lower extremity ==

== ENCOUNTER 2020-11-03 08:00 | Outpatient (CLI) | payer MEDICARE, OTHER | END 2020-11-03 23:59 | disposition home or self-care (01) | LOC: LAB.N 08:00 | PROVIDERS: ATTEND Family Medicine | DX: Z86.718 Personal history of other venous thrombosis and embolism (principal); Z79.01 Long term (current) use of anticoagulants ==

== ENCOUNTER 2020-11-24 08:00 | Outpatient (CLI) | payer MEDICARE, OTHER | END 2020-11-24 23:59 | disposition home or self-care (01) | LOC: LAB.WCP 08:00 | PROVIDERS: ATTEND Family Medicine | DX: Z79.01 Long term (current) use of anticoagulants (principal); I82.90 Acute embolism and thrombosis of unspecified vein ==

== ENCOUNTER 2020-12-01 08:00 | Outpatient (CLI) | payer MEDICARE, OTHER | END 2020-12-01 23:59 | disposition home or self-care (01) | LOC: LAB.WCP 08:00 | PROVIDERS: ATTEND Family Medicine | DX: Z86.718 Personal history of other venous thrombosis and embolism (principal); Z79.01 Long term (current) use of anticoagulants; I82.90 Acute embolism and thrombosis of unspecified vein ==

== ENCOUNTER 2020-12-17 08:00 | Outpatient (CLI) | payer MEDICARE, OTHER | END 2020-12-17 23:59 | disposition home or self-care (01) | LOC: LAB.N 08:00 | PROVIDERS: ATTEND Family Medicine | DX: Z86.718 Personal history of other venous thrombosis and embolism (principal); Z79.01 Long term (current) use of anticoagulants ==

== ENCOUNTER 2021-02-09 08:00 | Outpatient (CLI) | payer MEDICARE, OTHER | END 2021-02-09 23:59 | disposition home or self-care (01) | LOC: LAB.N 08:00 | PROVIDERS: ATTEND Family Medicine | DX: Z86.718 Personal history of other venous thrombosis and embolism (principal); Z79.01 Long term (current) use of anticoagulants ==

== ENCOUNTER 2021-03-13 15:49 | Outpatient (CLI) | payer MEDICARE, OTHER | END 2021-03-13 15:50 | disposition critical access hospital (66) | LOC: EMS 15:49 | DX: S05.11XA Contusion of eyeball and orbital tissues, right eye, initial encounter (principal); W18.30XA Fall on same level, unspecified, initial encounter; Y93.89 Activity, other specified; Y92.009 Unspecified place in unspecified non-institutional (private) residence as the place of occurrence of the external cause | CPT/HCPCS: A0425; A0429 ==

== ENCOUNTER 2021-03-13 16:05 | Emergency (ER) | payer MEDICARE, OTHER ==
[2021-03-13 16:22] LABS: BASOPHILS % (AUTO) 0.4 %; EOSINOPHILS % (AUTO) 0.2 %; HCT - HEMATOCRIT 39.6 % (37.0-47.0); LYMPHOCYTES # (AUTO) 0.5 10^3/uL (1.5-3.5); LYMPHOCYTES % (AUTO) 6.5 %; MEAN CORPUSCULAR HEMOGLOBIN 32.7 pg (27.0-31.0); MEAN CORPUSCULAR HGB CONC 32.8 g/dL (32.0-36.0); MEAN CORPUSCULAR VOLUME 99.5 fL (81.0-99.0); MEAN PLATELET VOLUME 8.8 fL (7.9-10.8); MONOCYTES # (AUTO) 0.4 10^3/uL (0.0-1.0); NEUTROPHILS # (AUTO) 7.3 10^3/uL (1.5-6.6); NEUTROPHILS % (AUTO) 87.5 %; PLT - PLATELET COUNT 282 10^3/uL (130-450); RED BLOOD COUNT 3.98 10^6/uL (4.20-5.40); RED CELL DISTRIBUTION WIDTH 13.8 % (12.0-15.0); WHITE BLOOD COUNT 8.3 x10^3/uL (4.8-10.8)
[2021-03-13 16:33] LABS: INR 2.3 (0.8-1.2); PT - PROTHROMBIN TIME 25.9 secs (9.9-12.6)
--- NOTE | 2021-03-13 16:46 | ED Physician Documentation ---
PD HPI HEAD INJURY - Stated complaint Stated Complaint: GLF - Chief complaint Chief Complaint: Trauma Hd/Nk - History obtained from History obtained from: Patient, EMS - History of Present Illness Mechanism of head injury: Fell Where head injury occurred: Home Pain level max: 4 Pain level now: 3 Location of injury: Right, Front, Top Quality of pain: Pain, Throbbing, Aching Associated symptoms: No: LOC, AMS, Amnesia, Nausea / vomiting, Neck pain, Pare sthesias, Seizures Symptoms improve with: Rest Contributing factors: Anticoagulated (warfarin) Recently seen: Not recently seen - Additional information Additional information: Patient is a 71-year-old female, on warfarin for a PE from several years ago. States she tripped and fell earlier today striking her right eye and orbital area on a piece of furniture. She states that later she tripped and fell again, this time striking the top of her head. She denies any neck or back pain. No vision changes. No other injuries. Now complains of a mild headache. 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 : Frequency HEENT: None Psych: Claustrophobia, Other Musculoskeletal: Chronic back pain Derm: Rosacea - Past Surgical History Past Surgical History: Yes Ortho: Other - Present Medications Home Medications: Ambulatory Orders Medication Instructions Recorded Confirmed Biotin 1,000 mcg PO DAILY 08/25/14 10/13/16 Doxycycline Hyclate 50 mg PO BID 08/25/14 10/13/16 Simvastatin 20 mg PO DAILY 08/25/14 03/13/21 lamoTRIgine [Lamictal Xr] 200 mg PO BID 08/25/14 03/13/21 Warfarin [Coumadin] 5 mg PO DAILY 01/11/15 03/13/21 Oxybutynin [Ditropan] 5 mg PO BID 08/18/15 03/13/21 Metronidazole 0 mg TOP DAILY 01/25/16 10/13/16 Topiramate [Topamax] 100 mg PO BID 10/13/16 03/13/21 Doxycycline Monohydrate 50 mg PO BID 10/17/17 03/13/21 Furosemide [Lasix] 20 mg PO DAILY 10/17/17 03/13/21 Potassium Chloride 10 meq PO DAILY 10/17/17 03/13/21 diazePAM [Valium] 5 mg PO DAILY 10/17/17 10/17/17 Cyclobenzaprine [Flexeril] 10 mg PO TID PRN #20 tablet 06/21/19 Oxycodone HCl/Acetaminophen 1 - 2 each PO Q6H PRN #14 tablet 06/21/19 [Percocet 5-325 mg Tablet] - Allergies Allergies/Adverse Reactions: Allergies Allergy/AdvReac Type Severity Reaction Status Date / Time pseudoephedrine Allergy Unknown Verified 03/13/21 16:18 [From Sudafed] motion sickness pills Allergy Unknown Uncoded 03/13/21 16:18 - Social History Does the pt smoke?: No Smoking Status: Never smoker Does the pt drink ETOH?: No Does the pt have substance abuse?: No - Immunizations Immunizations are current?: Yes - POLST Patient has POLST: No PD ED PE NORMAL - Vitals Vital signs reviewed: Yes - General General: Alert and oriented X 3, No acute distress, Well developed/nourished - HEENT HEENT: PERRL, Moist mucous membranes, Other (periorbital ecchymosis R eye. normal pupil. 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, No motor deficit, No sensory deficit, Normal speech - Psych Psych: Normal mood, Normal affect Results - Vitals Vitals: Vital Signs - 24 hr 03/13/21 03/13/21 03/13/21 16:07 16:41 17:33 Temperature 37.2 C Heart Rate 101 H 94 88 Respiratory 18 16 28 H Rate Blood Pressure 180/87 H 156/86 H O2 Saturation 100 99 03/13/21 18:07 Temperature Heart Rate 92 Respiratory 20 Rate Blood Pressure 164/83 H O2 Saturation 100 Oxygen O2 Source [] Room air O2 Source [] Room air O2 Source Room air - Labs Labs: Laboratory Tests 03/13/21 03/13/21 03/13/21 16:14 16:14 16:14 WBC 8.3 RBC 3.98 L Hgb 13.0 Hct 39.6 MCV 99.5 H MCH 32.7 H MCHC 32.8 RDW 13.8 Plt Count 282 MPV 8.8 Neut # (Auto) 7.3 H Lymph # (Auto) 0.5 L [place] # (Auto) 0.4 Eos # (Auto) 0.0 Baso # (Auto) 0.0 Absolute Nucleated RBC 0.00 Nucleated RBC % 0.0 PT 25.9 H INR 2.3 H Sodium 137 Potassium 3.8 Chloride 105 Carbon Dioxide 22 Anion Gap 10.0 BUN 24 H Creatinine 1.1 H Estimated GFR (MDRD) 49 L Glucose 124 H Calcium 9.4 Total Bilirubin 0.5 AST 27 ALT 24 Alkaline Phosphatase 82 Total Protein 6.5 L Albumin 3.9 Globulin 2.6 Albumin/Globulin Ratio 1.5 Urine Color Urine Clarity Urine pH Ur Specific [place] Urine Protein Urine Glucose (UA) Urine Ketones Urine Occult Blood Urine Nitrite Urine Bilirubin Urine Urobilinogen Ur Leukocyte Esterase Ur Microscopic Review Urine Culture Comments Nasal Adenovirus (PCR) Nasal B. parapertussis DNA (PCR) Nasal Coronavir 229E PCR Nasal Coronavir HKU1 PCR Nasal Coronavir NL63 PCR Nasal Coronavir OC43 PCR Nasal Enterovir/Rhinovir PCR Nasal Influenza B PCR Nasal Influenza A PCR Nasal Parainfluen 1 PCR Nasal Parainfluen 2 PCR Nasal Parainfluen 3 PCR Nasal Parainfluen 4 PCR Nasal RSV (PCR) Nasal B.pertussis DNA PCR Nasal C.pneumoniae (PCR) Oniel Human Metapneumo PCR Nasal M.pneumoniae (PCR) Nasal SARS-CoV-2 (PCR) 03/13/21 03/13/21 17:14 17:30 WBC RBC Hgb Hct MCV MCH MCHC RDW Plt Count MPV Neut # (Auto) Lymph # (Auto) [place] # (Auto) Eos # (Auto) Baso # (Auto) Absolute Nucleated RBC Nucleated RBC % PT INR Sodium Potassium Chloride Carbon Dioxide Anion Gap BUN Creatinine Estimated GFR (MDRD) Glucose Calcium Total Bilirubin AST ALT Alkaline Phosphatase Total Protein Albumin Globulin Albumin/Globulin Ratio Urine Color YELLOW Urine Clarity CLEAR Urine pH 7.0 Ur Specific [place] 1.010 Urine Protein NEGATIVE Urine Glucose (UA) NEGATIVE Urine Ketones NEGATIVE Urine Occult Blood TRACE-LYSE Urine Nitrite NEGATIVE Urine Bilirubin NEGATIVE Urine Urobilinogen 0.2 (NORMAL) Ur Leukocyte Esterase NEGATIVE Ur Microscopic Review NOT INDICATED Urine Culture Comments NOT INDICATED Nasal Adenovirus (PCR) NOT DETECTED Nasal B. parapertussis DNA (PCR) NOT DETECTED Nasal Coronavir 229E PCR NOT DETECTED Nasal Coronavir HKU1 PCR NOT DETECTED Nasal Coronavir NL63 PCR NOT DETECTED Nasal Coronavir OC43 PCR NOT DETECTED Nasal Enterovir/Rhinovir PCR NOT DETECTED Nasal Influenza B PCR NOT DETECTED Nasal Influenza A PCR NOT DETECTED Nasal Parainfluen 1 PCR NOT DETECTED Nasal Parainfluen 2 PCR NOT DETECTED Nasal Parainfluen 3 PCR NOT DETECTED Nasal Parainfluen 4 PCR NOT DETECTED Nasal RSV (PCR) NOT DETECTED Nasal B.pertussis DNA PCR NOT DETECTED Nasal C.pneumoniae (PCR) NOT DETECTED Oniel Human Metapneumo PCR NOT DETECTED Nasal M.pneumoniae (PCR) NOT DETECTED Nasal SARS-CoV-2 (PCR) NOT DETECTED - Rads (name of study) head CT Radiology: Final report received, EMP read contemporaneously, See rad report cervical spine CT Radiology: Final report received, EMP read contemporaneously, See rad report maxillofacial CT Radiology: Final report received, EMP read contemporaneously, See rad report PD MEDICAL DECISION MAKING - ED course Complexity details: reviewed results, re-evaluated patient, considered differential, d/w patient ED course: 71 year female with GLF x 2. Found to have an intracranial hemorrhage and subdural hemorrhage. INR 2.3. [facility] given. Call to [facility] placed at [phone] for transfer. Discussed the case with Dr. Flores, trauma surgeon who accepts in transfer. Also discussed with Dr. Reinoso, emergency department physician who accepts in transfer. 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 Patient will be sent via helicopter. COBRA forms completed. This document was made in part using voice recognition software. While efforts are made to proofread this document, sound alike and grammatical errors may oc cur. IMPRESSION: Relatively extensive acute extra-axial hemorrhage can be seen, which is largely along the right falx and along the right tentorium, yet with a small amount of s ubdural hemorrhage also seen along the lateral aspect of the right cerebral hemisphere. Right periorbital soft tissue swelling is seen, without an associated fracture. Maxillofacial CT: No displaced fractures are identified. Right periorbital soft tissue swelling. Bilateral anterior facial reconstruction change. Postoperative change of the mandible on both sides can also be seen. C-spine CT Negative for displaced fracture. At least moderate lower cervical spine degenerative changes are seen. Departure - Departure Disposition: 02 Transfer Acute Care Hosp Clinical Impression: Intracranial hemorrhage, Subdural hemorrhage, Anticoagulant long-term use Fall Qualifiers: Encounter type: initial encounter Qualified Code(s): W19.XXXA - Unspecified f all, initial encounter Condition: Stable Discharge Date/Time: 03/13/21 18:18
--- NOTE | 2021-03-13 16:53 | CT Report ---
PROCEDURE: HEAD WO INDICATIONS: fall, head injury on warfarin TECHNIQUE: Noncontrast 4.5 mm thick angled axial sections acquired from the foramen magnum to the vertex. For r adiation dose reduction, the following was used: automated exposure control, adjustment of mA and/or kV according to patient size. COMPARISON: 10/13/2019, 10-26, 10/17/2017. Correlation is also made with the accompanying cervical spine CT and maxillofacial CT, 03/13/2021. FINDINGS: Image quality: Excellent. CSF spaces: Basal cisterns are patent. Ventricles are normal in size and shape. Brain: There is acute extra-axial hemorrhage is seen, with blood along the right aspect of the falx, and extending along the right tentorium. No significant mass effect is seen. More focal hemorrhage c an be seen anteriorly, with a maximum thickness of 1.4 cm, as on series 8 image 20. A small amount of extra-axial subdural hemorrhage can also be seen along the lateral aspect of the right cerebral angela sphere measuring 3 mm in thickness. No midline shift. No intracranial masses. Laughlin-white matter interface is normal. Skull and face: Right periorbital soft tissue swelling is seen, without an underlying fracture. Calv arium and visualized facial bones are intact, without suspicious lesions. Hyperostosis frontalis is incidentally noted, which is not frankly abnormal for a female patient of this age. Sinuses: Visualized sinuses and mastoids are clear. IMPRESSION: Relatively extensive acute extra-axial hemorrhage can be seen, which is largely along the right falx and along the right tentorium, yet with a small amount of subdural hemorrhage also seen along the lat eral aspect of the right cerebral hemisphere. Right periorbital soft tissue swelling is seen, without an associated fracture. Note: Critical finding of acute intracranial hemorrhage discussed by telephone with Dr. Ulrich at 3:5 0 PM [place] time on 03/13/2021. Reviewed by: Scotty Duran MD on 03/13/2021 3:52 PM AKMERV[facility] Approved by: Scotty Duran MD on 03/13/2021 3:52 PM AKMERV[facility] Station ID: [id number]
[2021-03-13] MEDS ORDERED: PROTHROMBIN COMPLEX CONC 500 UNIT VIAL IVP STA (16:56)
[2021-03-13 16:57] LABS: ALBUMIN 3.9 g/dL (3.2-5.5); ALBUMIN/GLOBULIN RATIO 1.5 (1.0-2.2); BILIRUBIN,TOTAL 0.5 mg/dL (0.2-1.0); CALCIUM 9.4 mg/dL (8.5-10.3); CREATININE 1.1 mg/dL (0.4-1.0); POTASSIUM 3.8 mmol/L (3.5-5.0); TOTAL PROTEIN 6.5 g/dL (6.7-8.2)
--- NOTE | 2021-03-13 17:01 | CT Report ---
PROCEDURE: MAXILLOFACIAL WO INDICATIONS: fall, R facial injury on warfarin TECHNIQUE: Noncontrast 1.5 mm thick axial images acquired from the mandible through the frontal sinuses, with co sean and sagittal reformatting. For radiation dose reduction, the following was used: automated ex posure control, adjustment of mA and/or kV according to patient size. COMPARISON: Relation is made with the accompanying head CT and cervical spine CT, 03/13/2021. FINDINGS: Image quality: Excellent. Bones and teeth: Prior bilateral facial reconstruction can be seen, with several screws. Postoperativ e change can also be seen involving the mandible on both sides. Orbital walton are intact. Sinus walton show no fracture or deformity. Nasal bones and septum are int act. Visualized portions of the mandible demonstrate no fractures or subluxation. Zygomatic arches are intact. Pterygoid plates are intact. Visualized portions of the skull base and auditory canals are intact. Sinuses: Paranasal sinuses are aerated, without fluid levels, mucosal thickening, or mucoceles. Mas toid air cells are aerated. Soft tissues: Right periorbital soft tissue swelling can be seen. Vascular: Visualized vascular structures appear normal in the absence of contrast. Bony vascular fo ramina and canals are intact. IMPRESSION: No displaced fractures are identified. Right periorbital soft tissue swelling. Bilateral anterior facial reconstruction change. Postoperative change of the mandible on both sides can also be seen. Reviewed by: Scotty Duran MD on 03/13/2021 4:00 PM [facility] Approved by: Scotty Duran MD on 03/13/2021 4:00 PM NCMERVIN Station ID: [id number]
--- NOTE | 2021-03-13 17:03 | CT Report ---
PROCEDURE: CERVICAL SPINE WO INDICATIONS: fall, head injury on warfarin TECHNIQUE: Noncontrast 3 mm thick sections acquired from the skull base to the T4 level. Sagittal and coronal r eformats were then constructed. For radiation dose reduction, the following was used: automated exp osure control, adjustment of mA and/or kV according to patient size. COMPARISON: 1420. Correlation is also made with the accompanying head CT and maxillofacial CT, 021. FINDINGS: Image quality: This study is limited by quantum mottle artifact. Bones: No fractures or dislocations. Visualized superior ribs are intact. At least moderate lower cervical spine degenerative changes are seen. At the C7-T1 level, there is mo derate to severe disc space narrowing, associated endplate irregularity and sclerosis. Milder degener ative changes are seen elsewhere. Bilateral mandible postoperative changes are partially seen on this study. Soft tissues: Prevertebral soft tissues are normal in thickness. No paravertebral hematomas. No ap ical pneumothoraces. Atherosclerotic calcification is seen. IMPRESSION: Negative for displaced fracture. At least moderate lower cervical spine degenerative changes are seen. Reviewed by: Scotty Duran MD on 03/13/2021 4:01 PM [facility] Approved by: Scotty Duran MD on 03/13/2021 4:01 PM BUCK Station ID: [id number]
[2021-03-13 17:39] LABS: BILIRUBIN,URINE NEGATIVE (NEGATIVE); CLARITY,URINE CLEAR (CLEAR); GLUCOSE, URINE (UA) NEGATIVE (NEGATIVE); KETONES,URINE (UA) NEGATIVE (NEGATIVE); LEUKOCYTE ESTERASE, URINE NEGATIVE (NEGATIVE); NITRITE,URINE NEGATIVE (NEGATIVE); OCCULT BLOOD,URINE TRACE-LYSE (NEGATIVE); PROTEIN,URINE NEGATIVE (NEGATIVE); UROBILINOGEN,URINE 0.2 (NORMAL) E.U./dL (NORMAL)
[2021-03-13] MEDS ORDERED: PHYTONADIONE 10 MG/ML AMP IVP STA (17:47)
[2021-03-13] MEDS ORDERED: levETIRAcetam INJ 1,000 MG in SODIUM CHLORIDE 0.9% 100ML 100 ML IV STA (17:48)
[2021-03-13 18:08] VITALS: BP 164/83
[2021-03-13 18:17] LABS: B. PARAPERTUSSIS- RESP PCR PAN NOT DETECTED; B. PERTUSSIS- RESP PCR PANEL NOT DETECTED; C. PNEUMONIAE- RESP PCR PANEL NOT DETECTED; CORONAVIRUS 229E-RESP PCR NOT DETECTED; CORONAVIRUS HKU1-RESP PCR NOT DETECTED; CORONAVIRUS NL63-RESP PCR NOT DETECTED; CORONAVIRUS OC43-RESP PCR NOT DETECTED; HUMAN METAPNEUMOVIRUS NOT DETECTED; INFLUENZA A- RESP PCR PANEL NOT DETECTED; INFLUENZA B - RESP PCR PANEL NOT DETECTED; M. PNEUMONIAE- RESP PCR PANEL NOT DETECTED; PARAINFLUENZA VIRUS 1 NOT DETECTED; PARAINFLUENZA VIRUS 2 NOT DETECTED; PARAINFLUENZA VIRUS 3 NOT DETECTED; PARAINFLUENZA VIRUS 4 NOT DETECTED; RHINOVIRUS/ENTEROVIRUS NOT DETECTED; RSV- RESP PCR PANEL NOT DETECTED; SARS-CoV-2 -RESP PCR PANEL NOT DETECTED
== END 2021-03-13 18:18 | disposition short-term general hospital (02) ==
LOC: EDUNIT# → ED 16:05
DX: S06.5X0A Traumatic subdural hemorrhage without loss of consciousness, initial encounter (principal); W01.190A Fall on same level from slipping, tripping and stumbling with subsequent striking against furniture, initial encounter; Y92.009 Unspecified place in unspecified non-institutional (private) residence as the place of occurrence of the external cause; Z79.01 Long term (current) use of anticoagulants; Z86.711 Personal history of pulmonary embolism; I10 Essential (primary) hypertension
CPT/HCPCS: 36415; 70450; 70486; 72125; 80053; 81003; 85025; 85610; 87631; 96374; 96375; 99285; C9132; 0202U; 81001; 87086

== ENCOUNTER 2021-03-27 08:00 | Outpatient (CLI) | payer MEDICARE, OTHER ==
[2021-03-27 19:25] LABS: BASOPHILS # (AUTO) 0.1 10^3/uL (0.0-0.1); BASOPHILS % (AUTO) 0.9 %; EOSINOPHILS # (AUTO) 0.2 10^3/uL (0.0-0.7); HGB - HEMOGLOBIN 12.8 g/dL (12.0-16.0); LYMPHOCYTES % (AUTO) 18.5 %; MEAN CORPUSCULAR HEMOGLOBIN 32.7 pg (27.0-31.0); MEAN PLATELET VOLUME 9.2 fL (7.9-10.8); MONOCYTES # (AUTO) 0.4 10^3/uL (0.0-1.0); MONOCYTES % (AUTO) 7.7 %; NEUTROPHILS # (AUTO) 3.7 10^3/uL (1.5-6.6); NEUTROPHILS % (AUTO) 69.3 %; PLT - PLATELET COUNT 384 10^3/uL (130-450); RED BLOOD COUNT 3.92 10^6/uL (4.20-5.40); RED CELL DISTRIBUTION WIDTH 13.7 % (12.0-15.0); WHITE BLOOD COUNT 5.3 x10^3/uL (4.8-10.8)
[2021-03-27 19:35] LABS: ALBUMIN 3.6 g/dL (3.2-5.5); ALBUMIN/GLOBULIN RATIO 1.2 (1.0-2.2); BILIRUBIN,TOTAL 0.5 mg/dL (0.2-1.0); CALCIUM 9.5 mg/dL (8.5-10.3); CREATININE 0.8 mg/dL (0.4-1.0); MAGNESIUM 2.4 mg/dL (1.7-2.8); POTASSIUM 4.5 mmol/L (3.5-5.0); TOTAL PROTEIN 6.6 g/dL (6.7-8.2)
== END 2021-03-27 23:59 | disposition home or self-care (01) ==
LOC: LAB.R 08:00
PROVIDERS: ATTEND Family Medicine
DX: E87.6 Hypokalemia (principal); R42 Dizziness and giddiness; I10 Essential (primary) hypertension
CPT/HCPCS: 80053; 83735; 85025

== ENCOUNTER 2021-04-05 08:00 | Outpatient (CLI) | payer MEDICARE, OTHER ==
[2021-04-07 12:00] LABS: PROTEIN C ACTIVITY 135 % normal (70-180)
== END 2021-04-05 23:59 | disposition home or self-care (01) ==
LOC: LAB.WCP 08:00
PROVIDERS: ATTEND Family Medicine
DX: Z86.718 Personal history of other venous thrombosis and embolism (principal)
CPT/HCPCS: 36415; 81241; 81599; 85303; 85306

== ENCOUNTER 2021-05-11 13:48 | Outpatient (CLI) | payer MEDICARE, OTHER ==
--- NOTE | 2021-05-11 15:31 | Ultrasound Report ---
PROCEDURE: Duplex Ext Veins Right INDICATIONS: RIGHT LEG PAIN, HIST OF DVT TECHNIQUE: Real-time imaging, as well as color and pulse Doppler interrogation, were performed of the lower extr emity deep veins from the inguinal ligament to the popliteal fossa. COMPARISON: None. FINDINGS: The deep veins are normally compressible, and free of intraluminal thrombus. Color and pu lse Doppler demonstrate normal phasic intraluminal flow. There is normal augmentation response to di stal compression maneuver. Thrombus is identified in the greater saphenous vein superficial venous system at the level of the mi d thigh. IMPRESSION: Thrombus involving the greater saphenous vein of the superficial venous system of the right lower ext remity. Reviewed by: Adelina Ortega MD, PhD on 05/11/2021 2:30 PM [facility] Approved by: Adelina Ortega MD, PhD on 05/11/2021 2:30 PM BUCK Station ID: [id number]
== END 2021-05-11 13:49 | disposition home or self-care (01) ==
LOC: DI 13:48
PROVIDERS: ATTEND Family Medicine
DX: M79.604 Pain in right leg (principal); I82.811 Embolism and thrombosis of superficial veins of right lower extremity; Z86.718 Personal history of other venous thrombosis and embolism

== ENCOUNTER 2021-10-26 10:38 | Outpatient (CLI) | payer MEDICARE, OTHER ==
[2021-10-26 10:53] LABS: BASOPHILS % (AUTO) 0.6 %; EOSINOPHILS # (AUTO) 0.1 10^3/uL (0.0-0.7); EOSINOPHILS % (AUTO) 2.5 %; HCT - HEMATOCRIT 40.1 % (37.0-47.0); HGB - HEMOGLOBIN 12.8 g/dL (12.0-16.0); LYMPHOCYTES # (AUTO) 0.9 10^3/uL (1.5-3.5); LYMPHOCYTES % (AUTO) 17.5 %; MEAN CORPUSCULAR HEMOGLOBIN 32.2 pg (27.0-31.0); MEAN CORPUSCULAR HGB CONC 31.9 g/dL (32.0-36.0); MEAN CORPUSCULAR VOLUME 100.8 fL (81.0-99.0); MEAN PLATELET VOLUME 9.1 fL (7.9-10.8); MONOCYTES # (AUTO) 0.5 10^3/uL (0.0-1.0); MONOCYTES % (AUTO) 9.5 %; NEUTROPHILS # (AUTO) 3.7 10^3/uL (1.5-6.6); NEUTROPHILS % (AUTO) 69.5 %; PLT - PLATELET COUNT 271 10^3/uL (130-450); RED BLOOD COUNT 3.98 10^6/uL (4.20-5.40); RED CELL DISTRIBUTION WIDTH 13.6 % (12.0-15.0); WHITE BLOOD COUNT 5.3 x10^3/uL (4.8-10.8)
[2021-10-26 11:21] LABS: ALBUMIN/GLOBULIN RATIO 1.3 (1.0-2.2); BILIRUBIN,TOTAL 0.7 mg/dL (0.2-1.0); CALCIUM 9.6 mg/dL (8.5-10.3); CREATININE 0.9 mg/dL (0.4-1.0); POTASSIUM 4.6 mmol/L (3.5-5.0); TOTAL PROTEIN 7.1 g/dL (6.7-8.2)
== END 2021-10-26 10:39 | disposition home or self-care (01) ==
LOC: LAB 10:38
PROVIDERS: ATTEND Family Medicine
DX: I10 Essential (primary) hypertension (principal); R73.01 Impaired fasting glucose
CPT/HCPCS: 36415; 80053; 85025

== ENCOUNTER 2021-11-04 11:30 | Outpatient (CLI) | payer MEDICARE, OTHER | END 2021-11-04 11:31 | disposition critical access hospital (66) | LOC: EMS 11:30 | DX: R42 Dizziness and giddiness (principal) | CPT/HCPCS: A0425; A0429 ==

== ENCOUNTER 2021-11-04 11:47 | Emergency (ER) | payer MEDICARE, OTHER ==
[2021-11-04 12:29] LABS: BASOPHILS % (AUTO) 0.6 %; EOSINOPHILS # (AUTO) 0.2 10^3/uL (0.0-0.7); EOSINOPHILS % (AUTO) 3.1 %; HCT - HEMATOCRIT 43.6 % (37.0-47.0); LYMPHOCYTES # (AUTO) 0.9 10^3/uL (1.5-3.5); LYMPHOCYTES % (AUTO) 17.8 %; MEAN CORPUSCULAR HEMOGLOBIN 31.8 pg (27.0-31.0); MEAN CORPUSCULAR HGB CONC 32.1 g/dL (32.0-36.0); MEAN CORPUSCULAR VOLUME 99.1 fL (81.0-99.0); MEAN PLATELET VOLUME 8.9 fL (7.9-10.8); MONOCYTES # (AUTO) 0.4 10^3/uL (0.0-1.0); MONOCYTES % (AUTO) 8.1 %; NEUTROPHILS # (AUTO) 3.4 10^3/uL (1.5-6.6); NEUTROPHILS % (AUTO) 70.2 %; PLT - PLATELET COUNT 291 10^3/uL (130-450); RED CELL DISTRIBUTION WIDTH 13.6 % (12.0-15.0); WHITE BLOOD COUNT 4.8 x10^3/uL (4.8-10.8)
[2021-11-04 12:37] LABS: CALCIUM 9.7 mg/dL (8.5-10.3); POTASSIUM 4.3 mmol/L (3.5-5.0)
--- NOTE | 2021-11-04 12:48 | ED Physician Documentation ---
PD HPI FOCAL NEURO - Stated complaint Stated Complaint: VERTIGO - Chief complaint Chief Complaint: Neuro - History obtained from History obtained from: Patient, EMS - Additional information Additional information: She has a history of migraine associated vertigo. This has been under control as long as she is on her Topamax. Today she had an episode of this despite being compliant with her Topamax. She recently started propranolol for essential tremor and wonders if this might be related. She was in her usual state of health at a meeting and developed her usual vertigo. It was not associated with weakness, numbness, tingling, headache, or other focal neurologic symptoms. She took Bonine and her symptoms are now gone. Still no headache. No recent trauma. 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 HEENT: None Psych: Claustrophobia, Other Musculoskeletal: Chronic back pain Derm: Rosacea - Past Surgical History Past Surgical History: Yes Ortho: Other - Present Medications Home Medications: Ambulatory Orders Medication Instructions Recorded Confirmed Biotin 1,000 mcg PO DAILY 08/25/14 10/13/16 Doxycycline Hyclate 50 mg PO BID 08/25/14 10/13/16 Simvastatin 20 mg PO DAILY 08/25/14 03/13/21 lamoTRIgine [Lamictal Xr] 200 mg PO BID 08/25/14 03/13/21 Warfarin [Coumadin] 5 mg PO DAILY 01/11/15 03/13/21 Oxybutynin [Ditropan] 5 mg PO BID 08/18/15 03/13/21 Metronidazole 0 mg TOP DAILY 01/25/16 10/13/16 Topiramate [Topamax] 100 mg PO BID 10/13/16 03/13/21 Doxycycline Monohydrate 50 mg PO BID 10/17/17 03/13/21 Furosemide [Lasix] 20 mg PO DAILY 10/17/17 03/13/21 Potassium Chloride 10 meq PO DAILY 10/17/17 03/13/21 diazePAM [Valium] 5 mg PO DAILY 10/17/17 10/17/17 Cyclobenzaprine [Flexeril] 10 mg PO TID PRN #20 tablet 06/21/19 Oxycodone HCl/Acetaminophen 1 - 2 each PO Q6H PRN #14 tablet 06/21/19 [Percocet 5-325 mg Tablet] - Allergies Allergies/Adverse Reactions: Allergies Allergy/AdvReac Type Severity Reaction Status Date / Time No Known Drug Allergies Allergy Verified 11/04/21 11:55 - Social History Does the pt smoke?: No Smoking Status: Never smoker Does the pt drink ETOH?: No Does the pt have substance abuse?: No - Immunizations Immunizations are current?: Yes - POLST Patient has POLST: No PD ED PE NORMAL - Vitals Vital signs reviewed: Yes - General General: Alert and oriented X 3, No acute distress - HEENT HEENT: PERRL, EOMI (no nystagmus) - Neck Neck: Supple, no meningeal sign, No bony TTP - 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, edge grinder 2-12 intact, No motor deficit, No sensory deficit, Normal speech, Other (She walks with significant balance problems but she says this is her baseline. Ever since her subdural hemorrhage. Normal mfzrjx-dz-boom and cfyf-ak-jkdh testing.) Eye Opening: Spontaneous Motor: Obeys Commands Verbal: Oriented GCS Score: 15 - Psych Psych: Normal mood, Normal affect Results - Vitals Vitals: Vital Signs - 24 hr 11/04/21 11/04/21 11:50 11:54 Temperature 36.8 C 36.8 C Heart Rate 76 76 Respiratory 16 16 Rate Blood Pressure 167/102 H 167/102 H O2 Saturation 98 98 Oxygen O2 Source [With Activity] Room air O2 Source [Without Activity] Room air O2 Source Room air - Labs Labs: Laboratory Tests 11/04/21 11/04/21 12:25 12:25 WBC 4.8 RBC 4.40 Hgb 14.0 Hct 43.6 MCV 99.1 H MCH 31.8 H MCHC 32.1 RDW 13.6 Plt Count 291 MPV 8.9 Neut # (Auto) 3.4 Lymph # (Auto) 0.9 L [place] # (Auto) 0.4 Eos # (Auto) 0.2 Baso # (Auto) 0.0 Absolute Nucleated RBC 0.00 Nucleated RBC % 0.0 Sodium 138 Potassium 4.3 Chloride 106 Carbon Dioxide 22 Anion Gap 10.0 BUN 24 H Creatinine 1.0 Estimated GFR (MDRD) 55 L Glucose 102 H Calcium 9.7 PD MEDICAL DECISION MAKING - ED course ED course: Her vertigo is gone and she feels back to her baseline. She has a history of migraine associated vertigo. She says it is completely typical for her prior symptoms, its just strange that she developed it while on Topamax. Departure - Departure Disposition: 01 Home, Self Care Clinical Impression: Vertigo Migraine Qualifiers: Migraine type: with aura Status migrainosus presence: without status migrainosu s Intractability: not intractable Qualified Code(s): G43.109 - Migraine with aura, not intractable, without status migrainosus Condition: Good Record reviewed to determine appropriate education?: Yes Instructions: ED Vertigo Unspecified Comments: As discussed, I do not think the addition of propranolol would have caused your vertigo, that said it is worth a call to your neurologist. Return for new or worsening symptoms.
[2021-11-04 13:04] VITALS: BP 157/74
== END 2021-11-04 13:04 | disposition home or self-care (01) ==
LOC: EDUNIT# → ED 11:47
DX: G43.109 Migraine with aura, not intractable, without status migrainosus (principal); I10 Essential (primary) hypertension
CPT/HCPCS: 36415; 80048; 85025; 99283

== ENCOUNTER → 2022-06-08 | Outpatient (CLI) | payer MEDICARE, OTHER | END | disposition EMS.NT | LOC: EMS 11:04 | DX: Z03.89 Encounter for observation for other suspected diseases and conditions ruled out (principal) ==

== ENCOUNTER 2022-06-15 05:02 | Outpatient (CLI) | payer MEDICARE, OTHER | END 2022-06-15 23:59 | disposition critical access hospital (66) | LOC: EMS 05:02 | DX: M25.532 Pain in left wrist (principal); W01.0XXA Fall on same level from slipping, tripping and stumbling without subsequent striking against object, initial encounter; Y92.008 Other place in unspecified non-institutional (private) residence as the place of occurrence of the external cause; Z79.01 Long term (current) use of anticoagulants | CPT/HCPCS: A0425; A0429 ==

== ENCOUNTER 2022-06-15 05:17 | Emergency (ER) | payer MEDICARE, OTHER ==
--- NOTE | 2022-06-15 05:34 | ED Physician Documentation ---
PD HPI HEAD INJURY - Stated complaint Stated Complaint: GLF - Chief complaint Chief Complaint: Trauma Hd/Nk - History obtained from History obtained from: Patient - Additional information Additional information: Patient is a 72-year-old female with a history of vertigo, anticoagulated on Eliquis presenting for evaluation of a head injury that occurred around 4 AM. She was bending down to return of her [place] lights when she lost her balance and fell Striking her head on the floor. She denies LOC. 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 She denies recently being ill or feeling dizzy prior to falling.She denies chest pain, difficulty breathing, abdominal pain. Review of Systems Constitutional: denies: Fever Cardiac: denies: Chest pain / pressure Respiratory: denies: Dyspnea GI: denies: Abdominal Pain Musculoskeletal: denies: Back pain Neurologic: reports: Head injury. 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 HEENT: None Psych: Claustrophobia, Other Musculoskeletal: Chronic back pain Derm: Rosacea - Past Surgical History Past Surgical History: Yes Ortho: Other - Present Medications Home Medications: Ambulatory Orders Medication Instructions Recorded Confirmed Biotin 1,000 mcg PO DAILY 08/25/14 06/15/22 Simvastatin 20 mg PO DAILY 08/25/14 06/15/22 lamoTRIgine [Lamictal Xr] 200 mg PO BID 08/25/14 06/15/22 Oxybutynin [Ditropan] 5 mg PO BID 08/18/15 06/15/22 Topiramate [Topamax] 100 mg PO BID 10/13/16 06/15/22 Furosemide [Lasix] 20 mg PO DAILY 10/17/17 06/15/22 Potassium Chloride 10 meq PO DAILY 10/17/17 06/15/22 diazePAM [Valium] 5 mg PO DAILY 10/17/17 06/15/22 Cyclobenzaprine [Flexeril] 10 mg PO TID PRN #20 tablet 06/21/19 06/15/22 Oxycodone HCl/Acetaminophen 1 - 2 each PO Q6H PRN #14 tablet 06/21/19 06/15/22 [Percocet 5-325 mg Tablet] - Allergies Allergies/Adverse Reactions: Allergies Allergy/AdvReac Type Severity Reaction Status Date / Time No Known Drug Allergies Allergy Verified 06/15/22 05:36 - Social History Does the pt smoke?: No Smoking Status: Never smoker Does the pt drink ETOH?: No Does the pt have substance abuse?: No - Immunizations Immunizations are current?: Yes - POLST Patient has POLST: No PD ED PE NORMAL - General General: Alert and oriented X 3, No acute distress, Well developed/nourished - HEENT HEENT: Atraumatic, PERRL, EOMI, Pharynx benign - Neck Neck: Supple, no meningeal sign, No bony TTP, C-Spine cleared by NEXUS criteria - Cardiac Cardiac: RRR, No murmur - Respiratory Respiratory: No respiratory distress, Clear bilaterally - Abdomen Abdomen: Soft, Non tender, Non distended - Derm Derm: Warm and dry - Extremities Extremities: No tenderness to palpate - 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, bead picker 2-12 intact, No motor deficit, No sensory deficit, Normal speech Eye Opening: Spontaneous Motor: Obeys Commands Verbal: Oriented GCS Score: 15 Results - Vitals Vitals: Vital Signs - 24 hr 06/15/22 06/15/22 06/15/22 05:16 05:45 06:14 Temperature 35.7 C L 36.3 C L Heart Rate 97 82 76 Respiratory 16 22 16 Rate Blood Pressure 156/91 H 110/69 151/90 H O2 Saturation 100 100 99 Oxygen O2 Source [With Activity] Room air O2 Source [Without Activity] Room air O2 Source Room air PD MEDICAL DECISION MAKING - ED course Complexity details: reviewed results, re-evaluated patient ED course: Patient with ground-level fall and head injury sustained while turning off [place] lights. Her neuro exam is normal. She is anticoagulated on Eliquis. Head CT was obtained and is negative for bleed. Her C-spine was cleared by Nexus criteria. No extremity injuries her abdominal exam is benign.Patient is feeling well and counseled on concerning symptoms to return for. Departure - Departure Disposition: 01 Home, Self Care Clinical Impression: Ground-level fall Head injury Qualifiers: Encounter type: initial encounter Qualified Code(s): S09.90XA - Unspecified injury of head, initial encounter Condition: Stable Instructions: ED Head Injury Closed Comments: Your CT scan at this time fortunately does not show any signs of bleeding or injury From your fall. If you have any new or worsening symptoms please return to the emergency department. Discharge Date/Time: 06/15/22 06:15
[2022-06-15 06:15] VITALS: BP 151/90
--- NOTE | 2022-06-15 07:52 | CT Report ---
PROCEDURE: HEAD WO INDICATIONS: head injury on eliquis TECHNIQUE: Noncontrast 4.5 mm thick angled axial sections acquired from the foramen magnum to the vertex. For r adiation dose reduction, the following was used: automated exposure control, adjustment of mA and/or kV according to patient size. COMPARISON: 02/09/2022. FINDINGS: Image quality: Excellent. CSF spaces: Basal cisterns are patent. No extra-axial fluid collections. Ventricles are normal in size and shape. Brain: No midline shift. No intracranial masses or hemorrhage. Laughlin-white matter interface is norm al. Skull and face: Calvarium and visualized facial bones are intact, without suspicious lesions. Sinuses: Visualized sinuses and mastoids are clear. IMPRESSION: No evidence acute intracranial process. Findings are concordant with preliminary interpretation provided by [facility]. Reviewed by: Tio Molina MD on 06/15/2022 7:51 AM PST Approved by: Tio Molina MD on 06/15/2022 7:51 AM PST Station ID: [id number]
== END 2022-06-15 06:15 | disposition home or self-care (01) ==
LOC: EDUNIT# → ED 05:17
DX: S09.90XA Unspecified injury of head, initial encounter (principal); W18.39XA Other fall on same level, initial encounter; Y93.89 Activity, other specified; Y92.009 Unspecified place in unspecified non-institutional (private) residence as the place of occurrence of the external cause; Z79.01 Long term (current) use of anticoagulants
CPT/HCPCS: 36415; 99282; 99284

== ENCOUNTER 2022-09-18 15:16 | Outpatient (CLI) | payer MEDICARE, OTHER ==
--- NOTE | 2022-09-21 10:34 | Mammography Report ---
BILATERAL DIGITAL SCREENING MAMMOGRAM 3D/2D: 09/18/2022 CLINICAL: Routine screening. Comparison is made to exams dated: 02/16/2021 mammogram, 01/21/2018 mammogram - [facility], 016 mammogram, 05/26/2015 mammogram, 05/22/2013 mamm[address] - [facility], and mammogram - [facility]. There are scattered areas of fibroglandular density in both breasts (category b / 25%-50% glandular t issue). No significant masses, calcifications, or other findings are seen in either breast. There has been no significant interval change. IMPRESSION: NEGATIVE There is no mammographic evidence of malignancy. A 1 year screening mammogram is recommended. Based on the Tyrer Cuzick model (a risk assessment model) the patients lifetime risk is 7.1% and her 10 year risk is 4.9%. According to the ACR, ACS, and NCCN guidelines, an annual breast MRI exam burke g with mammogram is recommended if the patients lifetime risk is 20% or greater. This exam was interpreted at Station ID: [id number]. NOTE: For mammograms, a report in lay terms will be sent to the patient. Approximately 15% of breast malignancies will not be visualized mammographically. In the management of a palpable breast mass, a negative mammogram must not discourage biopsy of a clinically suspicious lesion. Electronically Signed By: Vinnie goodman/iris:09/21/2022 09:50:07 letter sent: No_Letter ACR BI-RADS Category 1: Negative 3341F PARENCHYMAL PATTERN: (A) - The breast(s) demonstrate(s) scattered fibroglandular densities. BI-RADS CATEGORY: (1) - 1 Mammogram [id number] 1 year screening LATERALITY: (B)
== END 2022-09-18 15:17 | disposition home or self-care (01) ==
LOC: DI.N 15:16
DX: Z12.31 Encounter for screening mammogram for malignant neoplasm of breast (principal)

== ENCOUNTER 2022-12-12 16:46 | Emergency (ER) | payer MEDICARE, OTHER ==
[2022-12-12] MEDS ORDERED: SODIUM CHLORIDE 0.9% 1,000 ML IV STA (17:56)
--- NOTE | 2022-12-12 18:01 | ED Physician Documentation ---
History of Present Illness - Stated complaint Stated Complaint: WEAK/NECK SPASMS - Chief complaint Chief Complaint: General - History obtained from History obtained from: Patient, Family - History of Present Illness Timing: Other (7 weeks ago) Pain level max: 7 Pain level now: 0 - Additonal information Additional information: 72-year-old female presents to the emergency department complaining of having neck spasms for the past 7 weeks. She states that she saw her orthopedist who placed her on Flexeril but this does not help. She states that the spasms last for about 3 to 5 minutes at a time. Usually occur when she is standing. No loss of bowel or bladder control. No numbness or tingling. No fevers. No chills. No trauma. No falls. She states that she has had decreased oral intake because when she walks the pain increases. Today she felt weaker than usual and had trouble standing up on her own. She is using a walker for the past 2 months to help with her neck pain No focal neurological deficits. No IV drug use. 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 HEENT: None Psych: Claustrophobia, Other Musculoskeletal: Chronic back pain Derm: Rosacea - Past Surgical History Past Surgical History: Yes Ortho: Other - Present Medications Home Medications: Ambulatory Orders Medication Instructions Recorded Confirmed Biotin 1,000 mcg PO DAILY 08/25/14 06/15/22 Simvastatin 20 mg PO DAILY 08/25/14 06/15/22 lamoTRIgine [Lamictal Xr] 200 mg PO BID 08/25/14 06/15/22 Oxybutynin [Ditropan] 5 mg PO BID 08/18/15 06/15/22 Topiramate [Topamax] 100 mg PO BID 10/13/16 06/15/22 Furosemide [Lasix] 20 mg PO DAILY 10/17/17 06/15/22 Potassium Chloride 10 meq PO DAILY 10/17/17 06/15/22 diazePAM [Valium] 5 mg PO DAILY 10/17/17 06/15/22 Cyclobenzaprine [Flexeril] 10 mg PO TID PRN #20 tablet 06/21/19 06/15/22 Oxycodone HCl/Acetaminophen 1 - 2 each PO Q6H PRN #14 tablet 06/21/19 06/15/22 [Percocet 5-325 mg Tablet] methylPREDNISolone [Medrol] 4 mg PO DAILY #1 tab 12/12/22 - Allergies Allergies/Adverse Reactions: Allergies Allergy/AdvReac Type Severity Reaction Status Date / Time No Known Drug Allergies Allergy Verified 06/15/22 05:36 - Social History Does the pt smoke?: No Smoking Status: Never smoker Does the pt drink ETOH?: No Does the pt have substance abuse?: No - Immunizations Immunizations are current?: Yes - POLST Patient has POLST: No PD ED PE NORMAL - Vitals Vital signs reviewed: Yes - General General: Alert and oriented X 3, No acute distress, Well developed/nourished - HEENT HEENT: Atraumatic, PERRL, EOMI, Pharynx benign, Other (dry lips and tongue) - Neck Neck: Supple, no meningeal sign, No bony TTP (No midline tenderness palpation or percussion. No step-off or deformity.), No JVD, No bruit, Other (Patient does have a neck hump and neck leans forward) - Cardiac Cardiac: RRR, Strong equal pulses - Respiratory Respiratory: No respiratory distress, Clear bilaterally - Abdomen Abdomen: Soft, Non tender, Non distended - Back Back: No spinal TTP - Derm Derm: Warm and dry - Extremities Extremities: Normal ROM s pain, No edema, No calf tenderness / cord - 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, tray line supervisor 2-12 intact, No motor deficit, No sensory deficit, Normal speech, Other (Normal bilateral lower extremity patellar and ankle jerk reflexes. Normal great toe extension bilaterally. no saddle anesthesia) Eye Opening: Spontaneous Motor: Obeys Commands Verbal: Oriented GCS Score: 15 - Psych Psych: Normal mood, Normal affect Results - Vitals Vitals: Vital Signs - 24 hr 12/12/22 12/12/22 12/12/22 17:04 17:13 19:29 Temperature 37.0 C Heart Rate 110 H 78 Respiratory 18 16 16 Rate Blood Pressure 128/69 119/75 O2 Saturation 99 99 100 Oxygen O2 Source [With Activity] Room air O2 Source [Without Activity] Room air O2 Source Room air - Labs Labs: Laboratory Tests 12/12/22 12/12/22 18:20 18:20 WBC 5.1 RBC 4.27 Hgb 13.4 Hct 42.4 MCV 99.3 H MCH 31.4 H MCHC 31.6 L RDW 14.0 Plt Count 295 MPV 8.9 Neut # (Auto) 3.6 Lymph # (Auto) 0.9 L [place] # (Auto) 0.5 Eos # (Auto) 0.1 Baso # (Auto) 0.0 Absolute Nucleated RBC 0.00 Nucleated RBC % 0.0 Sodium 139 Potassium 4.6 Chloride 109 Carbon Dioxide 24 Anion Gap 6.0 BUN 24 H Creatinine 1.1 H Estimated GFR (MDRD) 49 L Glucose 106 H Calcium 10.0 Ionized Calcium NO Phosphorus 2.8 Magnesium 2.2 Total Bilirubin 0.6 AST 19 ALT 14 Alkaline Phosphatase 80 Total Protein 7.3 Albumin 3.9 Globulin 3.4 Albumin/Globulin Ratio 1.1 - Rads (name of study) CT cervical spine Relevant Findings:: Final report received, See rad report PD Medical Decision Making - ED course Complexity details: reviewed results, re-evaluated patient, considered differential (No cauda equina, no spinal epidural abscess, no fracture, no aortic dissection or evidence of aneursym rupture), d/w patient, d/w family ED course: 72-year-old female with ongoing neck pain for the past 7 weeks. Seems to be mostly when she stands up and is walking. Better with lying down. She gets spasms as well. Appears to be consistent with cervical radiculopathy. Her CT scan does not show any acute fractures or subluxations but does show significant arthritis, especially in the lower cervical spine. We will place her on a Medrol Dosepak. Given dexamethasone. We will see if this improves her symptoms. She did receive IV fluids. She is ambulating much better and feels stronger after fluids. She does appear dehydrated with dry lips and tongue upon initial evaluation. She is eating and drinking without difficulty here. I recommend she follow-up with her PCP, she does see physical therapy already for another injury, would likely benefit from physical therapy for her neck as well. May benefit from an outpatient MRI as well. Alternatively she could also see a manager facility with her orthopedist. Patient counseled regarding signs and symptoms for which I believe and urgent re-evaluation would be necessary. Patient with good understanding of and agreement to plan and is comfortable going home at this time This document was made in part using voice recognition software. While efforts are made to proofread this document, sound alike and grammatical errors may occur. Departure - Departure Disposition: 01 Home, Self Care Clinical Impression: Cervical radiculopathy Condition: Good Instructions: ED Spasm Neck No Injury, ED Cervical Radiculopathy Follow-Up: Edelmira Braun ARNP [Primary Care Provider] - Within 1 week Prescriptions: methylPREDNISolone [Medrol] 4 mg PO DAILY #1 tab Comments: Your prescriptions were sent to [facility] in [place]. Please follow-up with your doctor for further care. It is recommended that you have physical therapy for your neck as you do have significant arthritis especially in the lower portion, this may be contributing to your spasms and what appears to be cervical radiculopathy. We will trial you on steroids. Please make sure you are drinking plenty of water. You may benefit from seeing a manager facility as well, there are physiatrists that work with Dr. Gray. You can try neck strengthening exercises as well. You can search for "fix [email or web address] [email or web address]" on youtube to get you started until you can see your physical therapist. PROCEDURE: CERVICAL SPINE WO INDICATIONS: neck pain x 7 weeks, no known injury TECHNIQUE: Noncontrast 3 mm thick sections acquired from the skull base to the T4 level. Sagittal and coronal reformats were then constructed. For radiation dose reduction, the following was used: automated exposure control, adjustment of mA and/or kV according to patient size. COMPARISON: None. FINDINGS: Image quality: Excellent. Bones: No fractures or dislocations. Visualized superior ribs are intact. Focal degenerative change can be seen involving the C1-C2 interface anteriorly. Moderate disc space narrowing can be seen at C5-C6, C6-C7, and C7-T1. Bridging anterior osteophytes can be seen inferiorly. Soft tissues: Prevertebral soft tissues are normal in thickness. No paravertebral hematomas. No apical pneumothoraces. IMPRESSION: Negative for cervical spine fracture. Cervical spine degenerative changes are seen, which are worst inferiorly. Discharge Date/Time: 12/12/22 20:18
[2022-12-12 18:26] LABS: BASOPHILS % (AUTO) 0.6 %; EOSINOPHILS # (AUTO) 0.1 10^3/uL (0.0-0.7); HCT - HEMATOCRIT 42.4 % (37.0-47.0); HGB - HEMOGLOBIN 13.4 g/dL (12.0-16.0); LYMPHOCYTES # (AUTO) 0.9 10^3/uL (1.5-3.5); LYMPHOCYTES % (AUTO) 17.8 %; MEAN CORPUSCULAR HEMOGLOBIN 31.4 pg (27.0-31.0); MEAN CORPUSCULAR HGB CONC 31.6 g/dL (32.0-36.0); MEAN CORPUSCULAR VOLUME 99.3 fL (81.0-99.0); MEAN PLATELET VOLUME 8.9 fL (7.9-10.8); MONOCYTES # (AUTO) 0.5 10^3/uL (0.0-1.0); MONOCYTES % (AUTO) 9.4 %; NEUTROPHILS # (AUTO) 3.6 10^3/uL (1.5-6.6); PLT - PLATELET COUNT 295 10^3/uL (130-450); RED BLOOD COUNT 4.27 10^6/uL (4.20-5.40); WHITE BLOOD COUNT 5.1 x10^3/uL (4.8-10.8)
[2022-12-12 18:40] LABS: ALBUMIN 3.9 g/dL (3.2-5.5); ALBUMIN/GLOBULIN RATIO 1.1 (1.0-2.2); ALKALINE PHOSPHATASE 80 IU/L (42-121); ALT ALANINE AMINOTRANSFERASE 14 IU/L (10-60); AST ASPARTATE AMINOTRANSFERASE 19 IU/L (10-42); BILIRUBIN,TOTAL 0.6 mg/dL (0.2-1.0); BUN - BLOOD UREA NITROGEN 24 mg/dL (6-20); CARBON DIOXIDE - CO2 24 mmol/L (21-32); CHLORIDE 109 mmol/L (101-111); CREATININE 1.1 mg/dL (0.4-1.0); GFR - MDRD 49 (>89); GLUCOSE 106 mg/dL (70-100); IONIZED CALCIUM IF INDICATED NO; MAGNESIUM 2.2 mg/dL (1.7-2.8); PHOSPHORUS 2.8 mg/dL (2.5-4.6); POTASSIUM 4.6 mmol/L (3.5-5.0); SODIUM 139 mmol/L (135-145); TOTAL PROTEIN 7.3 g/dL (6.7-8.2)
[2022-12-12 19:30] VITALS: BP 119/75
--- NOTE | 2022-12-12 19:40 | CT Report ---
PROCEDURE: CERVICAL SPINE WO INDICATIONS: neck pain x 7 weeks, no known injury TECHNIQUE: Noncontrast 3 mm thick sections acquired from the skull base to the T4 level. Sagittal and coronal r eformats were then constructed. For radiation dose reduction, the following was used: automated exp osure control, adjustment of mA and/or kV according to patient size. COMPARISON: None. FINDINGS: Image quality: Excellent. Bones: No fractures or dislocations. Visualized superior ribs are intact. Focal degenerative change can be seen involving the C1-C2 interface anteriorly. Moderate disc space n arrowing can be seen at C5-C6, C6-C7, and C7-T1. Bridging anterior osteophytes can be seen inferiorly . Soft tissues: Prevertebral soft tissues are normal in thickness. No paravertebral hematomas. No ap ical pneumothoraces. IMPRESSION: Negative for cervical spine fracture. Cervical spine degenerative changes are seen, which are worst inferiorly. Reviewed by: Scotty Duran MD on 12/12/2022 6:39 PM AKMERVIN Approved by: Scotty Duran MD on 12/12/2022 6:39 PM AKMERVIN Station ID: [id number]
[2022-12-12] MEDS ORDERED: DEXAMETHASONE 10 MG/ML VIAL IVP STA (20:01)
== END 2022-12-12 20:18 | disposition home or self-care (01) ==
LOC: ED 16:46
DX: M54.12 Radiculopathy, cervical region (principal); I10 Essential (primary) hypertension; I73.9 Peripheral vascular disease, unspecified; Z79.899 Other long term (current) drug therapy
CPT/HCPCS: 36415; 80053; 83735; 84100; 85025; 96374; 99283

== ENCOUNTER 2022-12-27 13:14 | Outpatient (CLI) | payer MEDICARE, OTHER ==
--- NOTE | 2022-12-27 17:21 | MRI Report ---
PROCEDURE: CERVICAL SPINE WO INDICATIONS: CERVICALGIA TECHNIQUE: Noncontrast sagittal T1 spin echo and T2 fast spin echo, sagittal STIR, foraminal oblique sagittal T2 fast spin echo, and axial gradient echo or T2 fast spin echo through the cervical spine. COMPARISON: CT cervical spine 12/12/2022 FINDINGS: Image quality: Excellent. Alignment and Curvature: There is normal bony alignment. Bone Marrow: Marrow demonstrates normal overall signal. Spinal Cord: Visualized spinal cord has normal size and signal. No cerebellar tonsillar herniation. Paraspinous Soft Tissues: No paravertebral masses. Prevertebral soft tissues are normal in thicknes s. Discs: Multilevel moderate to severe disc desiccation is present most severe at C5-6, C6-7. C2-C3: Minimal disc bulge without spinal stenosis or foraminal narrowing. C3-C4: Mild disc bulge with effacement of the anterior thecal sac. Moderate left and mild right for aminal narrowing with uncovertebral hypertrophy. C4-C5: Mild disc bulge without spinal stenosis. Moderate to severe left and mild right foraminal haydee rowing with uncovertebral hypertrophy. C5-C6: Mild disc bulge without spinal stenosis. Moderate left and [id number]-fr-[id number] right foraminal n arrowing with uncovertebral hypertrophy. C6-C7: Mild disc bulge with small superimposed right posterior paracentral protrusion. There is inde ntation anterior thecal sac without gross spinal stenosis. Moderate right foraminal narrowing with un covertebral hypertrophy. C7-T1: Minimal disc bulge without spinal stenosis. Moderate to severe left and moderate right forami nal narrowing with uncovertebral hypertrophy. IMPRESSION: Multilevel disc bulges. Multilevel foraminal narrowing overall moderate to severe secondary to uncovertebral arthropathy. Reviewed by: Cheryl Shay MD on 12/27/2022 5:20 PM PDT Approved by: Cheryl Shay MD on 12/27/2022 5:20 PM PDT Station ID: [id number]
== END 2022-12-27 13:15 | disposition home or self-care (01) ==
LOC: DI 13:14
PROVIDERS: ATTEND Nurse Practitioner
DX: M50.31 Other cervical disc degeneration, high cervical region (principal); M48.02 Spinal stenosis, cervical region; M47.812 Spondylosis without myelopathy or radiculopathy, cervical region; M50.223 Other cervical disc displacement at C6-C7 level

== ENCOUNTER 2023-01-25 11:08 | Outpatient (CLI) | payer MEDICARE, OTHER | END 2023-01-25 11:09 | disposition critical access hospital (66) | LOC: EMS 11:08 | DX: R51.9 Headache, unspecified (principal); W01.198A Fall on same level from slipping, tripping and stumbling with subsequent striking against other object, initial encounter; Y92.003 Bedroom of unspecified non-institutional (private) residence as the place of occurrence of the external cause; Z79.01 Long term (current) use of anticoagulants | CPT/HCPCS: A0425; A0429 ==

== ENCOUNTER 2023-01-25 11:28 | Emergency (ER) | payer MEDICARE, OTHER ==
[2023-01-25 12:01] VITALS: BP 110/66
--- NOTE | 2023-01-25 12:03 | ED Physician Documentation ---
PD HPI HEAD INJURY - Stated complaint Stated Complaint: FALL - Chief complaint Chief Complaint: Trauma Hd/Nk - History obtained from History obtained from: Patient, Family - History of Present Illness Mechanism of head injury: Fell Where head injury occurred: Home Pain level max: 0 Pain level now: 0 Location of injury: Right Associated symptoms: No: LOC, AMS, Amnesia, Nausea / vomiting, Neck pain, Paresthesias, Seizures, Ear drainage, Nasal drainage Symptoms improve with: Nothing Symptoms worsen with: Other (nothing) Contributing factors: Anticoagulated. No: Intoxicated - Additional information Additional information: Patient was sitting on the edge of her bed when she went to stand up and felt like her right knee gave out on her she fell to the right and struck her head/face on the walker. No loss of consciousness. No vomiting. No neck or back pain. No pain currently, but does take Eliquis and so was told to come in for a head CT. Patient is otherwise asymptomatic. 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 HEENT: None Psych: Claustrophobia, Other Musculoskeletal: Chronic back pain Derm: Rosacea - Past Surgical History Past Surgical History: Yes Ortho: Other - Present Medications Home Medications: Ambulatory Orders Medication Instructions Recorded Confirmed Biotin 1,000 mcg PO DAILY 08/25/14 06/15/22 Simvastatin 20 mg PO DAILY 08/25/14 06/15/22 lamoTRIgine [Lamictal Xr] 200 mg PO BID 08/25/14 06/15/22 Oxybutynin [Ditropan] 5 mg PO BID 08/18/15 06/15/22 Topiramate [Topamax] 100 mg PO BID 10/13/16 06/15/22 Furosemide [Lasix] 20 mg PO DAILY 10/17/17 06/15/22 Potassium Chloride 10 meq PO DAILY 10/17/17 06/15/22 diazePAM [Valium] 5 mg PO DAILY 10/17/17 06/15/22 Cyclobenzaprine [Flexeril] 10 mg PO TID PRN #20 tablet 06/21/19 06/15/22 Oxycodone HCl/Acetaminophen 1 - 2 each PO Q6H PRN #14 tablet 06/21/19 06/15/22 [Percocet 5-325 mg Tablet] methylPREDNISolone [Medrol] 4 mg PO DAILY #1 tab 12/12/22 - Allergies Allergies/Adverse Reactions: Allergies Allergy/AdvReac Type Severity Reaction Status Date / Time No Known Drug Allergies Allergy Verified 06/15/22 05:36 - Social History Does the pt smoke?: No Smoking Status: Never smoker Does the pt drink ETOH?: No Does the pt have substance abuse?: No - Immunizations Immunizations are current?: Yes - POLST Patient has POLST: No PD ED PE NORMAL - Vitals Vital signs reviewed: Yes - General General: Alert and oriented X 3, No acute distress - HEENT HEENT: Atraumatic, PERRL, Moist mucous membranes - Neck Neck: Supple, no meningeal sign - Cardiac Cardiac: RRR, Strong equal pulses - Respiratory Respiratory: No respiratory distress, Clear bilaterally - Abdomen Abdomen: Soft, Non tender, Non distended - Derm Derm: Warm and dry - Extremities Extremities: No edema, No calf tenderness / cord - 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, 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, No motor deficit, No sensory deficit, Normal speech Eye Opening: Spontaneous Motor: Obeys Commands Verbal: Oriented GCS Score: 15 - Psych Psych: Normal mood, Normal affect Results - Vitals Vitals: Vital Signs - 24 hr 01/25/23 11:55 Temperature 36.9 C Heart Rate 93 Respiratory 18 Rate Blood Pressure 110/66 O2 Saturation 98 Oxygen O2 Source [] Room air O2 Source [] Room air O2 Source Room air - Rads (name of study) head CT Relevant Findings:: Final report received, See rad report PD Medical Decision Making - ED course Complexity details: reviewed results, re-evaluated patient, considered differential, d/w patient ED course: 72-year-old female with a ground-level fall today she did strike her head and does take Eliquis. She has no other injuries. Head CT is negative. Patient is asymptomatic. We will have her follow-up with her doctor for further care. Patient counseled regarding signs and symptoms for which I believe and urgent re-evaluation would be necessary. Patient with good understanding of and agreement to plan and is comfortable going home at this time This document was made in part using voice recognition software. While efforts are made to proofread this document, sound alike and grammatical errors may occur. Departure - Departure Disposition: 01 Home, Self Care Clinical Impression: Closed head injury Qualifiers: Encounter type: initial encounter Qualified Code(s): S09.90XA - Unspecified injury of head, initial encounter Condition: Good Instructions: ED Head Injury Closed Follow-Up: your,doctor as needed [Other] Comments: Your head CT does not show any acute abnormalities today. Please follow-up with your doctor for further care. Please return if you worsen.
--- NOTE | 2023-01-25 12:31 | CT Report ---
PROCEDURE: HEAD WO INDICATIONS: fall, head injury pt on eliquis TECHNIQUE: Noncontrast 4.5 mm thick angled axial sections acquired from the foramen magnum to the vertex. For r adiation dose reduction, the following was used: automated exposure control, adjustment of mA and/or kV according to patient size. COMPARISON: 06/15/2022 FINDINGS: Image quality: Excellent. CSF spaces: Basal cisterns are patent. No extra-axial fluid collections. Ventricles are normal in size and shape. Brain: No midline shift. No intracranial masses or hemorrhage. Laughlin-white matter interface is norm al. Skull and face: Calvarium and visualized facial bones are intact, without suspicious lesions. Sinuses: Visualized sinuses and mastoids are clear. IMPRESSION: No acute intracranial pathology Reviewed by: Tio Molina MD on 01/25/2023 12:30 PM PDT Approved by: Tio Molina MD on 01/25/2023 12:30 PM PDT Station ID: [id number]
== END 2023-01-25 13:11 | disposition home or self-care (01) ==
LOC: EDUNIT# → ED 11:28
DX: S09.90XA Unspecified injury of head, initial encounter (principal); W18.39XA Other fall on same level, initial encounter; Y93.89 Activity, other specified; Y92.003 Bedroom of unspecified non-institutional (private) residence as the place of occurrence of the external cause
CPT/HCPCS: 99283; 99284

== ENCOUNTER 2023-01-25 13:10 | Emergency (ER) | payer MEDICARE, OTHER ==
--- NOTE | 2023-01-25 15:12 | ED Physician Documentation ---
PD HPI FOCAL NEURO - Stated complaint Stated Complaint: FACIAL NUMB - Chief complaint Chief Complaint: Neuro - History obtained from History obtained from: Patient, Family - Additional information Additional information: Patient is a 72-year-old female who presents to the emergency department stating that the left side of her scalp felt tingly about 2 hours ago and then the left side of her face felt tingly and "numb". Then it moved to the right side. Everything has resolved now except for 2 small areas of tingling/numbness underneath each of her eyes. No vision changes. No headache. She did have a fall and was seen here earlier today with a negative head CT as she does take Eliquis. 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 HEENT: None Psych: Claustrophobia, Other Musculoskeletal: Chronic back pain Derm: Rosacea - Past Surgical History Past Surgical History: Yes Ortho: Other - Present Medications Home Medications: Ambulatory Orders Medication Instructions Recorded Confirmed Biotin 1,000 mcg PO DAILY 08/25/14 06/15/22 Simvastatin 20 mg PO DAILY 08/25/14 06/15/22 lamoTRIgine [Lamictal Xr] 200 mg PO BID 08/25/14 06/15/22 Oxybutynin [Ditropan] 5 mg PO BID 08/18/15 06/15/22 Topiramate [Topamax] 100 mg PO BID 10/13/16 06/15/22 Furosemide [Lasix] 20 mg PO DAILY 10/17/17 06/15/22 Potassium Chloride 10 meq PO DAILY 10/17/17 06/15/22 diazePAM [Valium] 5 mg PO DAILY 10/17/17 06/15/22 Cyclobenzaprine [Flexeril] 10 mg PO TID PRN #20 tablet 06/21/19 06/15/22 Oxycodone HCl/Acetaminophen 1 - 2 each PO Q6H PRN #14 tablet 06/21/19 06/15/22 [Percocet 5-325 mg Tablet] methylPREDNISolone [Medrol] 4 mg PO DAILY #1 tab 12/12/22 - Allergies Allergies/Adverse Reactions: Allergies Allergy/AdvReac Type Severity Reaction Status Date / Time No Known Drug Allergies Allergy Verified 01/25/23 13:16 - Social History Does the pt smoke?: No Smoking Status: Never smoker Does the pt drink ETOH?: No Does the pt have substance abuse?: No - Immunizations Immunizations are current?: Yes - POLST Patient has POLST: No PD ED PE NORMAL - Vitals Vital signs reviewed: Yes - General General: Alert and oriented X 3, No acute distress - HEENT HEENT: PERRL, Moist mucous membranes - Neck Neck: Supple, no meningeal sign - Cardiac Cardiac: RRR, Strong equal pulses - Respiratory Respiratory: No respiratory distress, Clear bilaterally - Abdomen Abdomen: Soft, Non tender, Non distended - Derm Derm: Warm and dry - 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, 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, No motor deficit, No sensory deficit, Normal speech Eye Opening: Spontaneous Motor: Obeys Commands Verbal: Oriented GCS Score: 15 - Psych Psych: Normal mood, Normal affect NIHSS - Time Time: 15:05 - Level of Consciousness Level of consciousness: (0) Alert, Keenly responsive LOC Questions: (0) Answers both Q's correct LOC Commands: (0) Performs both correctly - Gaze Best Gaze: (0) Normal - Visual Visual: (0) No loss - Facial Palsy Facial Palsy: (0) Normal, symmetrical movement - Motor Arms (both separate) Motor Arm (right): (0) No drift Motor Arm (left): (0) No drift - Motor Legs (both separate) Motor Leg (right): (0) No drift Motor Leg (left): (0) No drift - Limb Ataxia Limb Ataxia: (0) Absent - Sensory Sensory: (0) Normal - Best Language Best Language: (0) No aphasia - Dysarthria Dysarthria: (0) Normal - Extinction and Inattention (formally neg Extinction and inattention: (0) No abnormality - Total Score/Results Total Score/Result: 0 Results - Vitals Vitals: Vital Signs - 24 hr 01/25/23 01/25/23 13:16 15:29 Temperature 36.5 C 36.7 C Heart Rate 82 68 Respiratory 16 18 Rate Blood Pressure 105/59 L 120/65 O2 Saturation 98 98 Oxygen O2 Source [With Activity] Room air O2 Source [Without Activity] Room air O2 Source Room air PD Medical Decision Making - ED course Complexity details: reviewed results, re-evaluated patient, considered differential, d/w patient, d/w family ED course: Unclear etiology of the patient's paresthesias earlier today, they are now mainly resolved in the emergency department. They affected the bilateral face, no indication for repeat neuroimaging as she had a head CT just a few hours ago. Did not have any facial droop, focal weakness, difficulty with speech or word finding. Did not have any slurred speech. No headache. We will have her follow-up with her doctor for further care. Patient is ambulating without difficulty in the emergency department. Normal cerebellar test. Patient counseled regarding signs and symptoms for which I believe and urgent re- evaluation would be necessary. Patient with good understanding of and agreement to plan and is comfortable going home at this time This document was made in part using voice recognition software. While efforts are made to proofread this document, sound alike and grammatical errors may occur. Departure - Departure Disposition: 01 Home, Self Care Clinical Impression: Paresthesia Condition: Good Instructions: ED Paraesthesias Follow-Up: Edelmira Braun ARNP [Primary Care Provider] - Within 1 week Comments: Please follow-up with your doctor for further care. Please return if you worsen. Make sure you are drinking plenty of water at home. Continue your current medications at home. Forms: PCP List Discharge Date/Time: 01/25/23 15:29
[2023-01-25 15:34] VITALS: BP 120/65
== END 2023-01-25 15:29 | disposition home or self-care (01) ==
LOC: ED 13:10
DX: R20.2 Paresthesia of skin (principal); S09.90XA Unspecified injury of head, initial encounter; W18.39XA Other fall on same level, initial encounter; Y93.89 Activity, other specified; Y92.003 Bedroom of unspecified non-institutional (private) residence as the place of occurrence of the external cause
CPT/HCPCS: 99281; 99283; 99284

== ENCOUNTER 2023-04-13 12:17 | Outpatient (CLI) | payer MEDICARE, OTHER ==
[2023-04-13 17:53] LABS: BASOPHILS % (AUTO) 0.9 %; EOSINOPHILS # (AUTO) 0.1 10^3/uL (0.0-0.7); EOSINOPHILS % (AUTO) 2.7 %; HCT - HEMATOCRIT 41.9 % (37.0-47.0); HGB - HEMOGLOBIN 12.9 g/dL (12.0-16.0); LYMPHOCYTES % (AUTO) 21.7 %; MEAN CORPUSCULAR HEMOGLOBIN 31.9 pg (27.0-31.0); MEAN CORPUSCULAR HGB CONC 30.8 g/dL (32.0-36.0); MEAN CORPUSCULAR VOLUME 103.5 fL (81.0-99.0); MEAN PLATELET VOLUME 10.4 fL (7.9-10.8); MONOCYTES # (AUTO) 0.5 10^3/uL (0.0-1.0); MONOCYTES % (AUTO) 11.2 %; NEUTROPHILS # (AUTO) 2.8 10^3/uL (1.5-6.6); NEUTROPHILS % (AUTO) 63.3 %; PLT - PLATELET COUNT 297 10^3/uL (130-450); RED BLOOD COUNT 4.05 10^6/uL (4.20-5.40); RED CELL DISTRIBUTION WIDTH 13.7 % (12.0-15.0); WHITE BLOOD COUNT 4.5 x10^3/uL (4.8-10.8)
[2023-04-13 18:26] LABS: ALBUMIN 4.1 g/dL (3.2-5.5); ALBUMIN/GLOBULIN RATIO 1.6 (1.0-2.2); BILIRUBIN,TOTAL 0.4 mg/dL (0.2-1.0); CALCIUM 9.8 mg/dL (8.5-10.3); CREATININE 1.1 mg/dL (0.6-1.3); POTASSIUM 4.2 mmol/L (3.5-4.5); TOTAL PROTEIN 6.6 g/dL (6.4-8.9)
[2023-04-13 19:03] LABS: THYROID STIMULATING HORMONE 2.35 uIU/mL (0.34-5.60)
== END 2023-04-13 12:18 | disposition home or self-care (01) ==
LOC: LAB.N 12:17
PROVIDERS: ATTEND Nurse Practitioner
DX: R00.0 Tachycardia, unspecified (principal)
CPT/HCPCS: 36415; 80053; 84439; 84443; 85025

== ENCOUNTER 2023-06-13 10:42 | Outpatient (CLI) | payer MEDICARE, OTHER ==
[2023-06-13 11:26] LABS: ESTIMATED AVERAGE GLUCOSE 97 mg/dL (70-100)
[2023-06-13 11:27] LABS: ALBUMIN 4.2 g/dL (3.2-5.5); ALBUMIN/GLOBULIN RATIO 1.4 (1.0-2.2); BILIRUBIN,TOTAL 0.3 mg/dL (0.2-1.0); CALCIUM 10.1 mg/dL (8.5-10.3); CREATININE 1.1 mg/dL (0.6-1.3); POTASSIUM 4.1 mmol/L (3.5-4.5); TOTAL PROTEIN 7.2 g/dL (6.4-8.9)
[2023-06-13 11:34] LABS: THYROID STIMULATING HORMONE 4.32 uIU/mL (0.34-5.60)
== END 2023-06-13 10:43 | disposition home or self-care (01) ==
LOC: LAB 10:42
PROVIDERS: ATTEND Nurse Practitioner
DX: N18.31 Chronic kidney disease, stage 3a (principal); R73.01 Impaired fasting glucose; E07.9 Disorder of thyroid, unspecified
CPT/HCPCS: 36415; 80053; 83036; 84439; 84443; 84481

== ENCOUNTER 2023-07-09 03:21 | Outpatient (CLI) | payer MEDICARE, OTHER | END 2023-07-09 23:59 | disposition EMS.NT | LOC: EMS 03:21 | DX: Z03.89 Encounter for observation for other suspected diseases and conditions ruled out (principal) ==

== ENCOUNTER 2023-08-20 09:43 | Outpatient (CLI) | payer MEDICARE, OTHER ==
[2023-08-20 12:46] LABS: BILIRUBIN,URINE NEGATIVE (NEGATIVE); CLARITY,URINE HAZY (CLEAR); GLUCOSE, URINE (UA) NEGATIVE (NEGATIVE); KETONES,URINE (UA) NEGATIVE (NEGATIVE); LEUKOCYTE ESTERASE, URINE TRACE (NEGATIVE); NITRITE,URINE NEGATIVE (NEGATIVE); OCCULT BLOOD,URINE LARGE (NEGATIVE); PROTEIN,URINE 100 mg/dL (NEGATIVE); UROBILINOGEN,URINE 0.2 (NORMAL) E.U./dL (NORMAL)
--- NOTE | 2023-08-20 18:59 | Ultrasound Report ---
PROCEDURE: Pelvic w/Transvaginal INDICATIONS: AUB TECHNIQUE: Real-time scanning was performed of the pelvic organs, with image documentation. Additional endovagi nal scanning was necessary due to incomplete visualization of the adnexal and endometrial structures by transabdominal scanning. COMPARISON: None. FINDINGS: Uterus: Uterus is anteverted and normal in size at 6.5 x 4.2 x 2.3 cm. The myometrium is homogeneou s. The endometrium measures 2 mm in combined thickness. Endometrial mass measuring 1.4 x 0.6 x 0.4 cm. Trace endometrial fluid. Mid posterior subserosal fibroid measuring 1.3 cm with calcification. Right posterior subserosal fibroid measuring 0.9 cm. Left anterior subserosal fibroid measuring 0.8 cm. Ovaries: The right ovary measures 2.6 x 2.5 x 2.2 cm, with a calculated ovarian volume of 7 cc. Righ t ovary is not well-defined. No conspicuous ovarian cyst. Left ovary is not identified. IMPRESSION: 1. Endometrial mass measuring 1.4 cm. Indeterminate. Recommend endometrial biopsy if not yet performe d. Saline infusion sonohysterogram or MRI pelvis with IV contrast could also be considered. 2. Several small uterine fibroids. 3. Left ovary is not seen. No conspicuous right ovarian cyst. Reviewed by: Thee Seymour MD on 08/20/2023 6:58 PM PST Approved by: Thee Seymour MD on 08/20/2023 6:58 PM PST Station ID: [id number]
== END 2023-08-20 09:44 | disposition home or self-care (01) ==
LOC: DI 09:43
PROVIDERS: ATTEND Nurse Practitioner
DX: N93.8 Other specified abnormal uterine and vaginal bleeding (principal); R31.9 Hematuria, unspecified; G40.909 Epilepsy, unspecified, not intractable, without status epilepticus; D25.2 Subserosal leiomyoma of uterus; N85.8 Other specified noninflammatory disorders of uterus
CPT/HCPCS: 36415; 80175; 81003

== ENCOUNTER 2023-10-10 10:56 | Outpatient (CLI) | payer MEDICARE, OTHER ==
--- NOTE | 2023-10-10 13:45 | Ultrasound Report ---
PROCEDURE: Soft Tissue Head or Neck INDICATIONS: THYROID NODULE, ABNORMAL LABS TECHNIQUE: Real-time scanning was performed of the thyroid gland, with image documentation. COMPARISON: No prior images available at the time of dictation FINDINGS: Right: Thyroid lobe measures 4.48 x 1.6 x 1.26 cm, and is heterogeneous in echotexture. Left: Thyroid lobe measures 3.4 x 2.2 x 1.4 cm, and is heterogeneous in echotexture. Isthmus: 0.58 cm thick. Nodule number: One Location: Right inferior Size: 1.22 x 1.04 x 1.44 cm (previously 1.68 x 1.25 x 1.55) . Composition: Dominantly solid. Echogenicity: Hyperechoic. Shape: Wider than tall Margins: irregular lobulated ill-defined Echogenic foci: Macrocalcifications present Total points: 4 ACR TI-RADS category: 4 IMPRESSION: ACR TI-RADS category: 4 Moderately suspicious right inferior thyroid nodule 1.4 cm; recommend follow-up imaging ACR TI-RADS definitions and recommendations: TI-RADS 1 (benign): 0 points. FNA not needed. TI-RADS 2 (not suspicious): 2 points. FNA not needed. TI-RADS 3 (mildly suspicious): 3 points. "FNA if 2.5 cm or larger, follow up if 1.5 cm or larger (at 1, 3, and 5 years). TI-RADS 4 (moderately suspicious): 4-6 points. "FNA if 1.5 cm or larger, follow up if 1 cm or larger (at 1, 2, 3, and 5 years). TI-RADS 5 (highly suspicious): 7 points or more. "FNA if 1 cm or larger, follow up if 0.5 cm or larger (every year for 5 years). Reviewed by: Jesse Galvez MD on 10/10/2023 1:44 PM PDT Approved by: Jesse Galvez MD on 10/10/2023 1:44 PM PDT Station ID: [id number]
== END 2023-10-10 10:57 | disposition home or self-care (01) ==
LOC: DI 10:56
PROVIDERS: ATTEND Nurse Practitioner
DX: E04.1 Nontoxic single thyroid nodule (principal)

== ENCOUNTER 2023-12-22 09:35 | Outpatient (CLI) | payer MEDICARE, OTHER ==
[2023-12-22 10:04] LABS: CALCIUM 10.1 mg/dL (8.5-10.3); CREATININE 1.1 mg/dL (0.6-1.3); POTASSIUM 4.2 mmol/L (3.5-4.5)
== END 2023-12-22 09:36 | disposition home or self-care (01) ==
LOC: LAB 09:35
PROVIDERS: ATTEND Nurse Practitioner
DX: Z51.81 Encounter for therapeutic drug level monitoring (principal); Z79.899 Other long term (current) drug therapy
CPT/HCPCS: 36415; 80048; 81001; 87086